=== PATIENT | female | born 1980 | race Caucasian/White ===

== ENCOUNTER 2016-12-30 14:36 | Emergency (ER) | payer SELFPAY ==
--- NOTE | 2016-12-30 16:19 | DIAGNOSTIC IMAGING REPORT ---
PROCEDURE: CT CERVICAL SPINE W/O CONTRAST INDICATION: TRAUMA/INJURY TECHNIQUE: Axial CT images were obtained through the cervical spine. Coronal and sagittal reformations were created. No comparison. COMPARISON: None. FINDINGS: There is straightening of the normal cervical lordosis and the kyphotic apex is at the C5-6 level. There is a focal slight anterior disc space widening at the C7-T1 level. There is subtle anterior vertebral body height loss of T1 and trace anterior superior and inferior endplate irregularity at T1. The cervical vertebral bodies are intact. Craniocervical junction is intact. Cervical disc spacing is otherwise normal. There is no significant prevertebral soft tissue swelling or suspicious mass. No unusual central canal densities are visible. The thyroid gland appears mildly diffusely enlarged and its contour is lobulated. The airway is normal. Lung apices are clear. IMPRESSION: 1. Questionable mild anterior wedge compression of T1 with slight anterior disc space widening at C7-T1. This could indicate an anterior longitudinal ligament injury versus normal variant. Notably, no significant adjacent soft tissue swelling. However, MRI for further evaluation is recommended. 2. Cervical spine is otherwise intact. 3. Mildly enlarged, lobular thyroid gland. Correlate clinically. 4. Findings called to the emergency room. All CT scans at this facility use dose modulation, iterative reconstruction, and/or weight-based dosing when appropriate to reduce radiation dose to as low as reasonably achievable.
--- NOTE | 2016-12-30 16:20 | DIAGNOSTIC IMAGING REPORT ---
PROCEDURE: CT HEAD WITHOUT CONTRAST INDICATION: HEAD INJURY TECHNIQUE: Axial CT images were acquired through the head. Coronal and sagittal reformations were created. COMPARISON: None. FINDINGS: No intracranial hemorrhage or extraaxial fluid collections. Ventricles are normal in size, shape and position. There is no mass, mass effect or midline shift. The vaughn-white matter differentiation is normal. There is no edema. The calvarium is intact. The paranasal sinuses and mastoid air cells are normally aerated. The extracranial soft tissues and orbits are normal. IMPRESSION: 1. No CT evidence of acute intracranial trauma. 2. Findings discussed with Dr. Abel at [address] scans at this facility use dose modulation, iterative reconstruction, and/or weight-based dosing when appropriate to reduce radiation dose to as low as reasonably achievable.
--- NOTE | 2016-12-30 19:36 | DIAGNOSTIC IMAGING REPORT ---
PROCEDURE: MR CERVICAL SPINE W/O CONT INDICATION: TRAUMA/INJURY TECHNIQUE: T1, T2, and STIR sagittal sequences. T2 and GRE axial sequences. COMPARISON: CT scan performed earlier the same day FINDINGS: Alignment and curvature: Slight reversal of the normal cervical lordosis with the kyphotic apex at C5-6. No AP subluxation. Intact craniocervical junction. Vertebral bodies: Vertebral body hemangioma in C6. The T1 vertebral body demonstrates normal marrow signal. Very slight anterior superior endplate downsloping without underlying edema is likely normal morphologic variant. No suspicious osseous edema or fracture plane. Disc spaces: Normally maintained disc spaces and signals. No evidence of focal herniation in the cervical spine. Incidental note made of mild disc bulge at the T5-6 level effacing the anterior CSF without causing cord signal. Spinal canal: Visible posterior fossa structures and spinal cord are normal without suspicious signal. No abnormal central canal masses or fluid collections. Paraspinal soft tissues: Longitudinal ligaments appear normal without edema or adjacent fluid. No suspicious paraspinal soft tissue masses or fluid collections. C2-3: Normal C3-4: Normal C4-5: Normal C5-6: Very small left foraminal broad-based disc bulge. C6-7: Normal C7-T1: Normal. IMPRESSION: 1. No MR evidence of acute cervical spine injury. CT findings of slight anterior wedging of T1 and wide and C7-T1 disc space represents normal variant. 2. No evidence of acute disc herniation or central canal hematoma. 3. Reversal of the normal cervical lordosis likely represents muscle spasm. 4. Findings called to the emergency room.
--- NOTE | 2016-12-30 20:19 | ED CLINICAL REPORT ---
Clinical Report - Physicians/Mid Levels [facility] [address] [place] [place] [address] 12/30/2016 14:41 Patient: FAREED MAGANA Time Seen: 1520. Arrived- By private vehicle. Historian- patient. HISTORY OF PRESENT ILLNESS Chief Complaint: INJURY TO HEAD. Location of injuries- (left occipital and L posterior neck). The injury occurred 2 days ago. Occurred at home. Fell (slipped in shower). The patient complains of moderate pain. The patient sustained a blow to the head and complains of neck pain. No loss of consciousness. (nausea and vomiting > 2 times). REVIEW OF SYSTEMS No numbness, chest pain, weakness, difficulty breathing or bladder dysfunction. No laceration. All systems otherwise negative, except as recorded above. PAST HISTORY See nurses notes. Tetanus immunization status is up-to-date. Medications: Estradiol Oral. Allergies: Aspirin. Azithromycin. Codeine. morphine. Possible Moderate(jittery) Penicillin. Sulfa Antibiotics. SOCIAL HISTORY Never smoker. No alcohol use or drug use. No recent travel. Is a local resident. PHYSICAL EXAM Appearance: Alert. Patient in mild distress. Head: No swelling of head. No Salazar's sign or raccoon eyes. (mild left occipital tenderness. no crepitus, step offs, hematoma, or bo abnormalities.). Eyes: Pupils equal, round and reactive to light. Pupillary exam: Right pupil 3mm, round and reactive to light directly and consensually and with accommodation. Left pupil: 3mm, round and reactive to light directly and consensually and with accommodation. EOM intact. No abnormal funduscopic findings. (normal-appearing retinal vasculature. No papilledema.). ENT: No dental injury. No hemotympanum. Pharynx normal. Neck: Painful ROM in the neck. No vertebral tenderness. (left posterior neck tenderness). CVS: Heart sounds normal. Pulses normal. Respiratory: Breath sounds normal. Chest nontender. Abdomen: Soft and nontender. No organomegaly. Back: No tenderness. ROM normal. Skin: Skin intact. Skin warm and dry. Normal skin color. Normal skin turgor. Extremities: Normal inspection. Pelvis stable. Extremities atraumatic. No lower extremity edema. Neuro: Oriented X 3. Mood/affect normal. Speech normal. No motor deficit. No sensory deficit. LABS, X-RAYS, AND EKG CT C-Spine: (PROCEDURE: CT CERVICAL SPINE W/O CONTRAST INDICATION: TRAUMA/INJURY TECHNIQUE: Axial CT images were obtained through the cervical spine. Coronal and sagittal reformations were created. No comparison. COMPARISON: None. FINDINGS: There is straightening of the normal cervical lordosis and the kyphotic apex is at the C5-6 level. There is a focal slight anterior disc space widening at the C7-T1 level. There is subtle anterior vertebral body height loss of T1 and trace anterior superior and inferior endplate irregularity at T1. The cervical vertebral bodies are intact. Craniocervical junction is intact. Cervical disc spacing is otherwise normal. There is no significant prevertebral soft tissue swelling or suspicious mass. No unusual central canal densities are visible. The thyroid gland appears mildly diffusely enlarged and its contour is lobulated. The airway is normal. Lung apices are clear. IMPRESSION: 1. Questionable mild anterior wedge compression of T1 with slight anterior disc space widening at C7-T1. This could indicate an anterior longitudinal ligament injury versus normal variant. Notably, no significant adjacent soft tissue swelling. However, MRI for further evaluation is recommended. 2. Cervical spine is otherwise intact. 3. Mildly enlarged, lobular thyroid gland. Correlate clinically. 4. Findings called to the emergency room.). CT Head: (PROCEDURE: CT HEAD WITHOUT CONTRAST INDICATION: HEAD INJURY TECHNIQUE: Axial CT images were acquired through the head. Coronal and sagittal reformations were created. COMPARISON: None. FINDINGS: No intracranial hemorrhage or extraaxial fluid collections. Ventricles are normal in size, shape and position. There is no mass, mass effect or midline shift. The vaughn-white matter differentiation is normal. There is no edema. The calvarium is intact. The paranasal sinuses and mastoid air cells are normally aerated. The extracranial soft tissues and orbits are normal. IMPRESSION: 1. No CT evidence of acute intracranial trauma.). The study was independently viewed by me, interpreted by the radiologist and discussed with the radiologist. MRI C-Spine: Note- PROCEDURE: MR CERVICAL SPINE W/O CONT INDICATION: TRAUMA/INJURY TECHNIQUE: T1, T2, and STIR sagittal sequences. T2 and GRE axial sequences. COMPARISON: CT scan performed earlier the same day FINDINGS: Alignment and curvature: Slight reversal of the normal cervical lordosis with the kyphotic apex at C5-6. No AP subluxation. Intact craniocervical junction. Vertebral bodies: Vertebral body hemangioma in C6. The T1 vertebral body demonstrates normal marrow signal. Very slight anterior superior endplate downsloping without underlying edema is likely normal morphologic variant. No suspicious osseous edema or fracture plane. Disc spaces: Normally maintained disc spaces and signals. No evidence of focal herniation in the cervical spine. Incidental note made of mild disc bulge at the T5-6 level effacing the anterior CSF without causing cord signal. Spinal canal: Visible posterior fossa structures and spinal cord are normal without suspicious signal. No abnormal central canal masses or fluid collections. Paraspinal soft tissues: Longitudinal ligaments appear normal without edema or adjacent fluid. No suspicious paraspinal soft tissue masses or fluid collections. C2-3: Normal C3-4: Normal C4-5: Normal C5-6: Very small left foraminal broad-based disc bulge. C6-7: Normal C7-T1: Normal. IMPRESSION: 1. No MR evidence of acute cervical spine injury. CT findings of slight anterior wedging of T1 and wide and C7-T1 disc space represents normal variant. 2. No evidence of acute disc herniation or central canal hematoma. 3. Reversal of the normal cervical lordosis likely represents muscle spasm. The study was independently viewed by me, interpreted by the radiologist and discussed with the radiologist. PROGRESS AND PROCEDURES Course of Care: the patient is a pleasant 36-year-old female presenting for a vaginal head injury after falling in the shower. Patient meets criteria for CT scan of the head. Patient is agreeable to treatment plan after discussing the risks and benefits of CT scan. The patient does not have any focal neurological deficits at this time. At this point in time there is been no known spinal cord injury. Medications for pain at ordered. Patient is resting in bed and in no acute distress. Patient appears nontoxic. Do not feel this is infectious in etiology. patient without reported reaction to morphine. Patient reports the morphine "makes her feel weird." dilaudid ordered instead. Workup was significant for a subtle abnormality on the patient's C-spine. Had discussed with radiology possibilities for the abnormality noted there. Differential includes traumatic injury versus congenital normal variant. Because of the consequences of potentially missed traumatic vertebral injury, MRI has been ordered. I had called over to the radiology department to have the MRI done as soon as possible. The earliest the MRI could be done was within several hours. I did inform the patient of the finding and the area agreeable to waiting here in the emergency department for the MRI could be completed. The patient is reporting significant improvement with her pain. Patient continues to be nontoxic. The patient's workup does not show any acute osseous abnormalities. CT scan and MRI have the Patient continues to be neurovascularly intact. Because MRI does not show any signs of acute traumatic injury, do not feel patient needs be admitted to the hospital require further emergency department workup/evaluation. Pain medication will be provided. Patient is agreeable to treatment plan. Discussed with patient workup, diagnosis, home care, follow-up, and return precautions. All questions have been answered. The patient expressed understanding of these instructions and was agreeable to them. Disposition: Discharged. Condition: good. CLINICAL IMPRESSION 12/30/2016 14:57 BP: 120/68. HR: 75. RR: 16. O2 saturation: 98%. Temp: 98.5 F. Pain level now: 8/10. Blood pressure normal. Oxygen saturation normal. Minor closed head injury. No loss of consciousness. (acute left occipital). Single contusion to the left posterior neck. INSTRUCTIONS Warnings: GENERAL WARNINGS: Return or contact your physician immediately if your condition worsens or changes unexpectedly, if not improving as expected, or if other problems arise. Specifically return if pain, vomiting, bleeding, breathing difficulty or fever. change in vision, weakness, numbness, tingling, or other concerns. Your Current Medications: CONTINUE TAKING THE FOLLOWING MEDICATIONS: Estradiol Oral. Prescription Medications: Motrin 600 mg tablets: take 1 tablet orally every 6 hours as needed for pain, stiffness or swelling. Dispense thirty (30). No refill. Substitution is permissible. (take with food) Percocet 5 mg/325 mg: take 1 tablet orally every 6 hours as needed for pain. Dispense twelve (12). No refill. Substitution is permissible. Follow-up: Return to the emergency department as needed. Follow up with your doctor in three days. Reason for referral: recheck today's concerns. Summary of care provided to patient via paper. Screening today revealed the patient's blood pressure to be in the normal range. The patient should follow up with a primary care provider for blood pressure management. Understanding of the discharge instructions verbalized by patient. Follow-up with: [facility], , , [address], , [place], [id number] Follow up. Reason for referral: contact if you do not have a primary care doctor. Summary of care provided to patient via paper. (Electronically signed by Kvng Abel Dr. 01/06/2017 23:40)
--- NOTE | 2016-12-30 20:19 | ED ORDER SUMMARY ---
..... Patient: FAREED MAGANA OrderSheet [facility] VisitID: [id number] [place] [address] 36y, F Registration Date/Time: 12/30/2016 ORDER SHEET Weight: 66.2 kg (stated) Allergies: Aspirin, Azithromycin, Codeine, Penicillin, Sulfa Antibiotics, morphine GENERAL ORDERS: CBC w Diff Urgent (15:12 12/30/2016 JBoardley R.N. per protocol) (Ack 15:22 LNations ER Tech1) (15:23 LNations ER Tech1) CMP Urgent (15:12 12/30/2016 JBoardley R.N. per protocol) (Ack 15:22 LNations ER Tech1) (15:23 LNations ER Tech1) CT Head wo Cont Urgent (15:38 12/30/2016 Thong Woods) (Ack 15:42 LNations ER Tech1) (15:55 JBoardley R.N.) CT Cervical Spine wo Cont Urgent (15:39 12/30/2016 Thong Woods) (Ack 15:42 LNations ER Tech1) (15:55 JBoardley R.N.) MRI Cervical Spine wo Cont (Not Applicable) Urgent (16:18 12/30/2016 Thong Woods) (Ack 16:20 LNations ER Tech1) (19:07 JBoardley R.N.) MEDICATION ORDERS: IV FLUIDS: Zofran IV 4 mg (NOW) (15:11 12/30/2016 JBoardley R.N. per protocol) (15:13 JBoardley R.N.) IV NS : initial bolus none -, then TKO - for X1 (NOW) (15:12 12/30/2016 JBoardley R.N. per protocol) (15:13 JBoardley R.N.) Morphine IV 4 mg (HIGH ALERT MEDICATION, NOW) (15:39 12/30/2016 Thong Woods) (Ack 15:39 JBoardley R.N.) (Cancelled: [id number] JBoardley R.N.) Dilaudid IV 1 mg (HIGH ALERT MEDICATION, NOW) (15:45 12/30/2016 Thong Woods) (Ack 15:47 JBoardley R.N.) (16:00 JBoardley R.N.) Diazepam IV 2 mg (HIGH ALERT MEDICATION, NOW) (16:46 12/30/2016 Thong Woods) (Ack 16:47 JBoardley R.N.) (16:55 JBoardley R.N.) Dilaudid IV 2 mg (HIGH ALERT MEDICATION, NOW) (17:29 12/30/2016 Thong Woods) (Ack 17:31 JBoardley R.N.) (17:36 JBoardley R.N.) ORDER SHEET NOTES: [Electronically signed by Cheo Adams R.N. (20:49 12/30/2016)] [Electronically signed by Kvng Abel Dr. (23:40 01/06/2017)] [Electronically locked/signed by Choe Adams R.N. (20:49 12/30/2016)]
--- NOTE | 2016-12-30 20:19 | ED ORDER SUMMARY ---
..... Patient: FAREED MAGANA OrderSheet [facility] VisitID: [id number] [place] [address] 36y, F Registration Date/Time: 12/30/2016 ORDER SHEET Weight: 66.2 kg (stated) Allergies: Aspirin, Azithromycin, Codeine, Penicillin, Sulfa Antibiotics, morphine GENERAL ORDERS: CBC w Diff Urgent (15:12 12/30/2016 JBoardley R.N. per protocol) (Ack 15:22 LNations ER Tech1) (15:23 LNations ER Tech1) CMP Urgent (15:12 12/30/2016 JBoardley R.N. per protocol) (Ack 15:22 LNations ER Tech1) (15:23 LNations ER Tech1) CT Head wo Cont Urgent (15:38 12/30/2016 Thong Woods) (Ack 15:42 LNations ER Tech1) (15:55 JBoardley R.N.) CT Cervical Spine wo Cont Urgent (15:39 12/30/2016 Thong Woods) (Ack 15:42 LNations ER Tech1) (15:55 JBoardley R.N.) MRI Cervical Spine wo Cont (Not Applicable) Urgent (16:18 12/30/2016 Thong Woods) (Ack 16:20 LNations ER Tech1) (19:07 JBoardley R.N.) MEDICATION ORDERS: IV FLUIDS: Zofran IV 4 mg (NOW) (15:11 12/30/2016 JBoardley R.N. per protocol) (15:13 JBoardley R.N.) IV NS : initial bolus none -, then TKO - for X1 (NOW) (15:12 12/30/2016 JBoardley R.N. per protocol) (15:13 JBoardley R.N.) Morphine IV 4 mg (HIGH ALERT MEDICATION, NOW) (15:39 12/30/2016 Thong Woods) (Ack 15:39 JBoardley R.N.) (Cancelled: [id number] JBoardley R.N.) Dilaudid IV 1 mg (HIGH ALERT MEDICATION, NOW) (15:45 12/30/2016 Thong Woods) (Ack 15:47 JBoardley R.N.) (16:00 JBoardley R.N.) Diazepam IV 2 mg (HIGH ALERT MEDICATION, NOW) (16:46 12/30/2016 Thong Woods) (Ack 16:47 JBoardley R.N.) (16:55 JBoardley R.N.) Dilaudid IV 2 mg (HIGH ALERT MEDICATION, NOW) (17:29 12/30/2016 Thong Woods) (Ack 17:31 JBoardley R.N.) (17:36 JBoardley R.N.) ORDER SHEET NOTES: [Electronically signed by Cheo Adams R.N. (20:49 12/30/2016)] [Electronically signed by Kvng Abel Dr. (23:40 01/06/2017)] [Electronically locked/signed by Cheo Adams R.N. (20:49 12/30/2016)]
--- NOTE | 2016-12-30 20:19 | ED NURSING NOTES ---
Clinical Report - Nurses [facility] [address] [place] [address] 12/30/2016 14:41 Patient: FAREED MAGANA TRIAGE Triage time 14:53. Acuity: LEVEL 3. Chief Complaint: FALL. 14:53 12/30/16. 14:54 12/30/16. Alert. ( Pt fell in the shower Friday. Since pt has "been sleepy". This occurred while pt was shaving her legs). SEPSIS SCREEN: Sepsis Screen. Negative (no infection suspected/documented). DEEDEE COMA SCORE: Deedee Coma Scale: 15- eyes open spontaneously (4); best verbal response- oriented x 4 (5); best motor response- obeys commands (6). --15:01 Marquis Delgado R.N. 14:57 12/30/16. BP: 120/68. HR: 75. RR: 16. O2 saturation: 98% on room air. Temp: 98.5 F (oral). Pain level now: 06/19. --15:01 Marquis Delgado R.N. Weight: 66.2 kg stated. Height/Length: 61 inches Per Patient. BMI: 27.6. --14:53 Marquis Delgado R.N. Medications Estradiol Oral. --14:56 Marquis Delgado R.N. Medication/allergy information source: the patient. --15:01 Marquis Delgado R.N. Allergies Aspirin. Azithromycin. Codeine. Penicillin. Sulfa Antibiotics. --14:56 Marquis Delgado R.N. morphine. Possible Moderate(jittery) --15:42 Marquis Delgado R.N. History Arrived by private vehicle. Historian: patient. Unaccompanied. Primary physician (NONE). 14:54 12/30/16. Occurred at home. ( Friday). The patient had loss of consciousness. She has had a headache and neck pain. Treatment SUBSCRIPTION AGENT: Ice and (Oxycodone-APAP). PAST MEDICAL HX: Tetanus status: unknown. Immunizations: status is unknown. The patient has had a hysterectomy. SOCIAL HX: Current every day light tobacco smoker (cigarette)- less than 1/2 a pack per day. No alcohol use or drug use. No infectious disease exposure. ABUSE ASSESSMENT: No report of abuse. FALL RISK ASSESSMENT: Fall risk assessment completed. No fall risk identified. NUTRITIONAL RISK ASSESSMENT: The nutritional risk assessment revealed no deficiencies. FUNCTIONAL ASSESSMENT: Functional assessment: no impairments noted. LEARNING NEEDS ASSESSMENT: The learning needs assessment revealed no barriers. SKIN INTEGRITY ASSESSMENT: Skin integrity risk assessment completed. No skin integrity risk identified. --15:01 Marquis Delgado R.N. ( c/o N/V). --15:02 Marquis Delgado R.N. PROBLEMS: Vomiting. UTI - Urinary Tract Infection. Back Injury. Back Pain. Lumbar Strain. --14:56 Marquis Delgado R.N. ADDITIONAL SURGERIES: Hysterectomy. Previous Abdominal Surgery. --14:56 Marquis Delgado R.N. Assessment 14:54 12/30/16. --15:01 Marquis Delgado R.N. Interventions 14:53 12/30/16. 14:54 12/30/16. ID and allergy band on patient. To treatment room. --15:01 Marquis Delgado R.N. PHYSICAL ASSESSMENT 14:57 12/30/16. Ambulatory to room. GENERAL / NEURO / PSYCH: Alert. Oriented X 4. Appears in pain. HEENT: Neck: tenderness. RESPIRATORY: Respirations not labored. CVS: Capillary refill less than 2 seconds. EXTREMITIES: Neuro-vascular status intact to the extremity. SKIN: Skin is warm and dry. --14:57 Marquis Delgado R.N. NURSING PROGRESS NOTES 14:57 12/30/16. Patient gowned. Reassurance given. Two patient identifiers checked. Call light placed in reach. Side rails up x 2. Bed placed in lowest position. Brakes of bed on. Brakes of chair on. --14:57 Marquis Delgado R.N. 14:57 12/30/16. Patient ready for evaluation- chart flagged and notification provided. --14:57 Marquis Delgado R.N. 15:12 12/30/2016 Site #1 started via IV in the right antecubital space with an 20g angiocath, with aseptic technique and good blood return; one attempt. Blood drawn: rainbow set. Labeled in the presence of the patient and sent to the lab. Saline lock flushed with 10 mL saline. --15:12 Marquis Delgado R.N. 15:12 12/30/2016 Started bag #1 1000 mL IV Fluids IV NS (Saline); at 21 mL/hr over 4 hour(s) via site #1. Allergies verified and confirmed 5 rights. Completed per protocol. --15:13 Marquis Delgado R.N. 15:13 12/30/2016 Zofran (Ondansetron HCl) IVP 4 mg given over 2 minute(s) via site #1. Allergies verified and confirmed 5 rights. IV patency established. IV site checked: no pain, redness, or swelling. IV flushed thoroughly pre- and post-medication administration. IVP given by RN. --15:13 Marquis Delgado R.N. 15:13 12/30/16. Pulse oximeter applied. NIBP monitor applied. --15:13 Marquis Delgado R.N. 15:13 12/30/16. HR: 67. RR: 14. O2 saturation: 100% on room air. Pain level now: 06/19. --15:14 Marquis Delgado R.N. 15:14 12/30/16. --15:14 Marquis Delgado R.N. 15:18 12/30/16. ( aware of pts status, Nausea). --15:18 Marquis Delgado R.N. 15:18 12/30/16. ED physician notified about patient's status. --15:18 Marquis Delgado R.N. 15:32 12/30/16. ( at bedside, pt moved to room 5 to free up trauma room 1). --15:32 Marquis Delgado R.N. 15:37 12/30/16. --15:37 Marquis Delgado R.N. 15:36 12/30/16. BP: 126/66. HR: 65. RR: 16. O2 saturation: 99% on room air. --15:37 Marquis Delgado R.N. 15:37 12/30/16. Patient waiting for CT to be done. --15:37 Marquis Delgado R.N. 15:38 12/30/16. Reassessment after medication administered. Overall patient status is improved- she states feels better. GI / : Denies nausea. --15:38 Marquis Delgado R.N. 16:00 12/30/2016 Dilaudid (HYDROmorphone HCl PF) IVP 1 mg given over 4 minute(s) via site #1. Allergies verified, confirmed 5 rights and sedative warning given to the patient. IV patency established. IV site checked: no pain, redness, or swelling. IV flushed thoroughly pre- and post-medication administration. IVP given by RN. --16:00 Marquis Delgado R.N. 16:01 12/30/16. BP: 121/75. HR: 63. RR: 14. O2 saturation: 98% on room air. --16:01 Marquis Delgado R.N. 16:01 12/30/16. --16:01 Marquis Delgado R.N. 16:02 12/30/16. Patient informed about reason for wait and about plan of care. --16:02 Marquis Delgado R.N. 16:02 12/30/16. Patient waiting for CT results. --16:02 Marquis Delgado R.N. ( MRI paperwork given to pt.). --16:26 Leona Metz ER [facility] 16:55 12/30/2016 Diazepam (Diazepam) IVP 2 mg given over 2 minute(s) via site #1. Allergies verified, confirmed 5 rights and sedative warning given to the patient. IV patency established. IV site checked: no pain, redness, or swelling. IV flushed thoroughly pre- and post-medication administration. IVP given by RN. --16:55 Marquis Delgado R.N. 16:55 12/30/16. BP: 115/65. HR: 73. RR: 18. O2 saturation: 100% on room air. --16:56 Marquis Delgado R.N. 16:56 12/30/16. --16:56 Marquis Delgado R.N. 16:56 12/30/16. Patient waiting for MRI to be done (at 1800). --16:56 Marquis Delgado R.N. 17:36 12/30/2016 Dilaudid (HYDROmorphone HCl PF) IVP 2 mg given over 4 minute(s) via site #1. Allergies verified, confirmed 5 rights and sedative warning given to the patient. IV patency established. IV site checked: no pain, redness, or swelling. IV flushed thoroughly pre- and post-medication administration. IVP given by RN. --17:36 Marquis Delgado R.N. 17:40 12/30/16. --17:40 Marquis Delgado R.N. 17:39 12/30/16. BP: 116/75. HR: 70. RR: 14. O2 saturation: 100% on room air. --17:40 Marquis Delgado R.N. Patient transported to [facility] by wheelchair. (18:20 Dec 30 2016). --18:26 Brielle Melchor R.N. 19:04 12/30/16. Care transferred and report given. --19:04 Marquis Delgado R.N. 19:07 12/30/16. Patient returned from [facility] by stretcher with tech. --19:07 Marquis Delgado R.N. 19:17 12/30/16. Patient and family informed about reason for wait and about plan of care. --19:17 Marquis Delgado R.N. 19:17 12/30/16. Patient waiting for MRI to be done and result. --19:17 Marquis Delgado R.N. 19:17 12/30/16. --19:17 Marquis Delgado R.N. 19:12/30/16. BP: 100/50. HR: 52. RR: 12. O2 saturation: 100% on room air. --19:17 Marquis Delgado R.N. 19:17 12/30/16. Monitoring of patient in place. Pulse oximeter applied. NIBP monitor applied. --19:17 Marquis Delgado R.N. DISPOSITION / DISCHARGE Condition at departure: improved. The goals identified in the patient's plan of care were met. Reviewed medication(s) side effects, precautions, dosing and course information. Prescription(s) given to the patient. Patient verbalized understanding. Written instructions provided in Greek. The patient was discharged home and accompanied by spouse. She left the Emergency Department ambulatory and via private vehicle. Spouse driving. FALL RISK ASSESSMENT: Fall risk assessment completed. No fall risk identified. --20:49 Cheo Adams R.N. 20:46 12/30/16. BP: 122/72. HR: 77. RR: 16. O2 saturation: 98%. Temp: 98.2 F. Pain level now: 04/19. --20:49 Cheo Adams R.N. Departure time: 2048 PM. --20:49 Cheo Adams R.N. 20:49 12/30/2016 Site #1 removed upon discharge. Catheter intact. --20:49 Cheo Adams R.N. 20:49 12/30/2016 IV Fluids IV NS Discontinued: bag #1 infused upon discharge. IV patency established. IV site checked: no pain, redness, or swelling. IV flushed thoroughly. --20:49 Cheo Adams R.N. Locked/Released at 12/30/2016 20:49 by Cheo Adams R.N.
--- NOTE | 2017-01-06 23:40 | ED DISCHARGE INSTRUCTIONS ---
Patient: FAREED MAGANA General Instructions [facility] VisitID: [id number] [address] [place] [address] 36y, F Registration Date/Time: 12/30/2016 12/30/2016 14:57 BP: 120/68. HR: 75. RR: 16. O2 saturation: 98%. Temp: 98.5 F. Pain level now: 8/10. Blood pressure normal. Oxygen saturation normal. Minor closed head injury. No loss of consciousness. (acute left occipital). Single contusion to the left posterior neck. INSTRUCTIONS Warnings: GENERAL WARNINGS: Return or contact your physician immediately if your condition worsens or changes unexpectedly, if not improving as expected, or if other problems arise. Specifically return if pain, vomiting, bleeding, breathing difficulty or fever. change in vision, weakness, numbness, tingling, or other concerns. Your Current Medications: CONTINUE TAKING THE FOLLOWING MEDICATIONS: Estradiol Oral. Prescription Medications: Motrin 600 mg tablets: take 1 tablet orally every 6 hours as needed for pain, stiffness or swelling. Dispense thirty (30). No refill. Substitution is permissible. (take with food) Percocet 5 mg/325 mg: take 1 tablet orally every 6 hours as needed for pain. Dispense twelve (12). No refill. Substitution is permissible. Follow-up: Return to the emergency department as needed. Follow up with your doctor in three days. Reason for referral: recheck today's concerns. Summary of care provided to patient via paper. Screening today revealed the patient's blood pressure to be in the normal range. The patient should follow up with a primary care provider for blood pressure management. Understanding of the discharge instructions verbalized by patient. Follow-up with: [facility], , , [address], [place], [address] Follow up. Reason for referral: contact if you do not have a primary care doctor. Summary of care provided to patient via paper. ADDITIONAL INFORMATION Concussion (No Wake-Up) A concussion happens when you hit your head with enough force to shake up the brain. This may cause you to lose consciousness be "knocked out" - but not always. Depending on how hard you hit your head, it will take from a few hours up to a few days to get better. Sometimes symptoms may last a few months or longer. This is called post-concussion syndrome. At first, you may have a headache, nausea, vomiting, or dizziness. You may also have problems concentrating or remembering things. This is normal. Symptoms should get better as the hours and days go by. Symptoms that get worse could be a sign of a more serious injury. This might be a bruise or bleeding in the brain. Thats why its important to watch for the warning signs listed below. Home care Follow these tips to help care for yourself at home: During the next day (24 hours) someone must stay with you to check for the signs below. If your face or scalp swells, apply an ice pack for 20 minutes every 1 to 2 hours. Do this until the swelling starts to go down. You can make an ice pack by putting ice cubes in a plastic bag and wrapping the bag in a towel. for 20 minutes every 1-2 hours until the swelling starts to go down. You may use acetaminophen to control pain, unless another pain medicine was prescribed. If you have chronic liver or kidney disease, talk with your doctor before using these medicines. Also talk with your doctor if you ever had a stomach ulcer or GI bleeding. For the next 24 hours: Dont drink alcohol or take sedatives or medicines that make you sleepy. Dont drive or operate machinery. Avoid doing anything strenuous. Dont lift or strain. Dont return to sports or any activity that could cause you to hit your head until all symptoms are gone and you have been cleared by your doctor. A second head injury before fully recovering from the first one can lead to serious brain injury. Follow-up care Follow up with your doctor in 1 week, or as directed. Note: A radiologist will review any X-rays or CT scans that were taken. You will be told of any new findings that may affect your care. When to seek medical care Get prompt medical attention if any of these occur: Repeated vomiting Headache or dizziness that is severe or gets worse Unusual drowsiness, or unable to wake up as usual Confusion or change in behavior or speech, or memory loss Blurred vision Convulsion (seizure) Swelling on the scalp or face that gets worse Redness, warmth, or pus from the swollen area Fluid draining from or bleeding from the nose or ears Contusion,Soft Tissue You have a CONTUSION, which is a bruise with swelling and some bleeding under the skin. There are no broken bones. This injury takes a few days to a few weeks to heal. Home Care: 1) Keep the injured part elevated to reduce pain and swelling. This is especially important during the first 48 hours. 2) Make an ice pack (ice cubes in a plastic bag, wrapped in a towel) and apply for 20 minutes every 1-2 hours the first day. Continue this 3-4 times a day until the pain and swelling goes away. 3) You may use acetaminophen (Tylenol) or ibuprofen (Motrin, Advil) to control pain, unless another pain medicine was prescribed. [ NOTE : If you have chronic liver or kidney disease or ever had a stomach ulcer or GI bleeding, talk with your doctor before using these medicines.] Follow Up with your doctor or this facility if you are not improving within the next THREE days. [NOTE: If X-rays were taken, they will be reviewed by a radiologist. You will be notified of any new findings that may affect your care.] Get Prompt Medical Attention if any of the following occur: -- Pain or swelling increases -- Injured arm or leg becomes cold, blue, numb or tingly -- Redness, warmth or drainage from the skin Ibuprofen Oral tablet What is this medicine? IBUPROFEN (eye BYOO proe fen) is a non-steroidal anti-inflammatory drug (NSAID). It is used for dental pain, fever, headaches or migraines, osteoarthritis, rheumatoid arthritis, or painful monthly periods. It can also relieve minor aches and pains caused by a cold, flu, or sore throat. How should I use this medicine? Take this medicine by mouth with a glass of water. Follow the directions on the prescription label. Take this medicine with food if your stomach gets upset. Try to not lie down for at least 10 minutes after you take the medicine. Take your medicine at regular intervals. Do not take your medicine more often than directed. A special MedGuide will be given to you by the pharmacist with each prescription and refill. Be sure to read this information carefully each time. Talk to your boring inspector regarding the use of this medicine in children. Special care may be needed. What side effects may I notice from receiving this medicine? Side effects that you should report to your doctor or health account executive healthcare as soon as possible: allergic reactions like skin rash, itching or hives, swelling of the face, lips, or tongue black or bloody stools, blood in the urine or in vomit breathing problems changes in vision chest pain general ill feeling or flu-like symptoms nausea or vomiting redness, blistering, peeling or loosening of the skin, including inside the mouth slurred speech or weakness on one side of the body stomach pain unexplained weight gain or swelling unusually weak or tired yellowing of eyes or skin Side effects that usually do not require medical attention (report to your doctor or health account executive healthcare if they continue or are bothersome): constipation or diarrhea dizziness gas or heartburn stomach upset What may interact with this medicine? Do not take this medicine with any of the following medications: cidofovir ketorolac methotrexate pemetrexed This medicine may also interact with the following medications: alcohol aspirin diuretics lithium other drugs for inflammation like prednisone warfarin What if I miss a dose? If you miss a dose, take it as soon as you can. If it is almost time for your next dose, take only that dose. Do not take double or extra doses. Where should I keep my medicine? Keep out of the reach of children. Store at room temperature between 15 and 30 degrees C (59 and 86 degrees F). Keep container tightly closed. Throw away any unused medicine after the expiration date. What should I tell my health care provider before I take this medicine? They need to know if you have any of these conditions: asthma cigarette smoker drink more than 3 alcohol containing drinks a day heart disease or circulation problems such as heart failure or leg edema (fluid retention) high blood pressure kidney disease liver disease stomach bleeding or ulcers an unusual or allergic reaction to ibuprofen, aspirin, other NSAIDS, other medicines, foods, dyes, or preservatives or trying to get breast-feeding What should I watch for while using this medicine? Tell your doctor or healthcare professional if your symptoms do not start to get better or if they get worse. This medicine does not prevent heart attack or stroke. In fact, this medicine may increase the chance of a heart attack or stroke. The chance may increase with longer use of this medicine and in people who have heart disease. If you take aspirin to prevent heart attack or stroke, talk with your doctor or health account executive healthcare. Do not take other medicines that contain aspirin, ibuprofen, or naproxen with this medicine. Side effects such as stomach upset, nausea, or ulcers may be more likely to occur. Many medicines available without a prescription should not be taken with this medicine. This medicine can cause ulcers and bleeding in the stomach and intestines at any time during treatment. Ulcers and bleeding can happen without warning symptoms and can cause . To reduce your risk, do not smoke cigarettes or drink alcohol while you are taking this medicine. You may get drowsy or dizzy. Do not drive, use machinery, or do anything that needs mental alertness until you know how this medicine affects you. Do not stand or sit up quickly, especially if you are an older patient. This reduces the risk of dizzy or fainting spells. This medicine can cause you to bleed more easily. Try to avoid damage to your teeth and gums when you brush or floss your teeth. Oxycodone Hydrochloride, Acetaminophen Oral tablet What is this medicine? ACETAMINOPHEN; OXYCODONE (a set a ASHOK zhou fen; ox i KOE done) is a pain reliever. It is used to treat mild to moderate pain. How should I use this medicine? Take this medicine by mouth with a full glass of water. Follow the directions on the prescription label. Take your medicine at regular intervals. Do not take your medicine more often than directed. Talk to your boring inspector regarding the use of this medicine in children. Special care may be needed. Patients over 65 years old may have a stronger reaction and need a smaller dose. What side effects may I notice from receiving this medicine? Side effects that you should report to your doctor or health account executive healthcare as soon as possible: allergic reactions like skin rash, itching or hives, swelling of the face, lips, or tongue breathing difficulties, wheezing confusion light headedness or fainting spells severe stomach pain yellowing of the skin or the whites of the eyes Side effects that usually do not require medical attention (report to your doctor or health account executive healthcare if they continue or are bothersome): dizziness drowsiness nausea vomiting What may interact with this medicine? alcohol antihistamines barbiturates like amobarbital, butalbital, butabarbital, methohexital, pentobarbital, phenobarbital, thiopental, and secobarbital benztropine drugs for bladder problems like solifenacin, trospium, oxybutynin, tolterodine, hyoscyamine, and methscopolamine drugs for breathing problems like ipratropium and tiotropium drugs for certain stomach or intestine problems like propantheline, homatropine methylbromide, glycopyrrolate, atropine, belladonna, and dicyclomine general anesthetics like etomidate, ketamine, nitrous oxide, propofol, desflurane, enflurane, halothane, isoflurane, and sevoflurane medicines for depression, anxiety, or psychotic disturbances medicines for sleep muscle relaxants naltrexone narcotic medicines (opiates) for pain phenothiazines like perphenazine, thioridazine, chlorpromazine, mesoridazine, fluphenazine, prochlorperazine, promazine, and trifluoperazine scopolamine tramadol trihexyphenidyl What if I miss a dose? If you miss a dose, take it as soon as you can. If it is almost time for your next dose, take only that dose. Do not take double or extra doses. Where should I keep my medicine? Keep out of the reach of children. This medicine can be abused. Keep your medicine in a safe place to protect it from theft. Do not share this medicine with anyone. Selling or giving away this medicine is dangerous and against the law. Store at room temperature between 20 and 25 degrees C (68 and 77 degrees F). Keep container tightly closed. Protect from light. This medicine may cause accidental overdose and if it is taken by other adults, children, or pets. Flush any unused medicine down the toilet to reduce the chance of harm. Do not use the medicine after the expiration date. What should I tell my health care provider before I take this medicine? They need to know if you have any of these conditions: brain tumor Crohn's disease, inflammatory bowel disease, or ulcerative colitis drink more than 3 alcohol containing drinks per day drug abuse or addiction head injury heart or circulation problems kidney disease or problems going to the bathroom liver disease lung disease, asthma, or breathing problems an unusual or allergic reaction to acetaminophen, oxycodone, other opioid analgesics, other medicines, foods, dyes, or preservatives or trying to get breast-feeding What should I watch for while using this medicine? Tell your doctor or health account executive healthcare if your pain does not go away, if it gets worse, or if you have new or a different type of pain. You may develop tolerance to the medicine. Tolerance means that you will need a higher dose of the medication for pain relief. Tolerance is normal and is expected if you take this medicine for a long time. Do not suddenly stop taking your medicine because you may develop a severe reaction. Your body becomes used to the medicine. This does NOT mean you are addicted. Addiction is a behavior related to getting and using a drug for a non-medical reason. If you have pain, you have a medical reason to take pain medicine. Your doctor will tell you how much medicine to take. If your doctor wants you to stop the medicine, the dose will be slowly lowered over time to avoid any side effects. You may get drowsy or dizzy. Do not drive, use machinery, or do anything that needs mental alertness until you know how this medicine affects you. Do not stand or sit up quickly, especially if you are an older patient. This reduces the risk of dizzy or fainting spells. Alcohol may interfere with the effect of this medicine. Avoid alcoholic drinks. There are different types of narcotic medicines (opiates) for pain. If you take more than one type at the same time, you may have more side effects. Give your health care provider a list of all medicines you use. Your doctor will tell you how much medicine to take. Do not take more medicine than directed. Call emergency for help if you have problems breathing. The medicine will cause constipation. Try to have a bowel movement at least every 2 to 3 days. If you do not have a bowel movement for 3 days, call your doctor or health account executive healthcare. Do not take Tylenol (acetaminophen) or medicines that have acetaminophen with this medicine. Too much acetaminophen can be very dangerous. Many nonprescription medicines contain acetaminophen. Always read the labels carefully to avoid taking more acetaminophen. You have been given the following additional information: Concussion, No Wake-Up Contusion, Soft Tissue Ibuprofen Oral tablet Oxycodone Hydrochloride, Acetaminophen Oral tablet (Electronically signed by Kvng Abel Dr. 01/06/2017 23:40)
--- NOTE | 2017-01-06 23:40 | ED MAR SUMMARY ---
..... Medication Administration Record [facility] [address] [place] [address] Patient: FAREED MAGANA Visit ID: [id number] 36y, F Weight: 66.2 kg Height/Length: 61 in BMI: 27.6 ALLERGIES: Aspirin, Azithromycin, Codeine, Penicillin, Sulfa Antibiotics, morphine Start 15:12 12/30/2016 Marqius Delgado R.N., Stop 20:49 12/30/2016 Cheo Adams R.N. Medication Administered: IV NS (SALINE), Dose: IV Fluids over 4 hour(s), Rate: 21 mL/hr, Dispensed: 1000 mL bag, Site: #1 right AC. Medication Ordered: IV NS : initial bolus none -, then TKO - for X1 (NOW). Given 15:13 12/30/2016 Marquis Delgado R.N. Medication Administered: ZOFRAN [IVP] (ONDANSETRON HCL), Dose: 4 mg IVP over 2 minute(s), Site: #1 right AC. Medication Ordered: Zofran IV 4 mg (NOW). Given 16:00 12/30/2016 Marquis Delgado R.N. Medication Administered: DILAUDID [IVP] (HYDROMORPHONE HCL PF), Dose: 1 mg IVP over 4 minute(s), Site: #1 right AC. Medication Ordered: Dilaudid IV 1 mg (HIGH ALERT MEDICATION, NOW). Given 16:55 12/30/2016 Marquis Delgado R.N. Medication Administered: DIAZEPAM [IVP] (DIAZEPAM), Dose: 2 mg IVP over 2 minute(s), Site: #1 right AC. Medication Ordered: Diazepam IV 2 mg (HIGH ALERT MEDICATION, NOW). Given 17:36 12/30/2016 Marquis Delgado R.N. Medication Administered: DILAUDID [IVP] (HYDROMORPHONE HCL PF), Dose: 2 mg IVP over 4 minute(s), Site: #1 right AC. Medication Ordered: Dilaudid IV 2 mg (HIGH ALERT MEDICATION, NOW).
--- NOTE | 2017-01-06 23:40 | ED MAR SUMMARY ---
..... Medication Administration Record [facility] [address] [place] [address] Patient: FAREED MAGANA Visit ID: [id number] 36y, F Weight: 66.2 kg Height/Length: 61 in BMI: 27.6 ALLERGIES: Aspirin, Azithromycin, Codeine, Penicillin, Sulfa Antibiotics, morphine Start 15:12 12/30/2016 Marquis Delgado R.N., Stop 20:49 12/30/2016 Cheo Adams R.N. Medication Administered: IV NS (SALINE), Dose: IV Fluids over 4 hour(s), Rate: 21 mL/hr, Dispensed: 1000 mL bag, Site: #1 right AC. Medication Ordered: IV NS : initial bolus none -, then TKO - for X1 (NOW). Given 15:13 12/30/2016 Marquis Delgado R.N. Medication Administered: ZOFRAN [IVP] (ONDANSETRON HCL), Dose: 4 mg IVP over 2 minute(s), Site: #1 right AC. Medication Ordered: Zofran IV 4 mg (NOW). Given 16:00 12/30/2016 Marquis Delgado R.N. Medication Administered: DILAUDID [IVP] (HYDROMORPHONE HCL PF), Dose: 1 mg IVP over 4 minute(s), Site: #1 right AC. Medication Ordered: Dilaudid IV 1 mg (HIGH ALERT MEDICATION, NOW). Given 16:55 12/30/2016 Marquis Delgado R.N. Medication Administered: DIAZEPAM [IVP] (DIAZEPAM), Dose: 2 mg IVP over 2 minute(s), Site: #1 right AC. Medication Ordered: Diazepam IV 2 mg (HIGH ALERT MEDICATION, NOW). Given 17:36 12/30/2016 Marquis Delgado R.N. Medication Administered: DILAUDID [IVP] (HYDROMORPHONE HCL PF), Dose: 2 mg IVP over 4 minute(s), Site: #1 right AC. Medication Ordered: Dilaudid IV 2 mg (HIGH ALERT MEDICATION, NOW).
--- NOTE | 2017-01-06 23:40 | ED MED RECONCILIATION SUMMARY ---
Patient: FAREED MAGANA Medication Reconciliation Report [facility] VisitID: [id number] [address] [place] [address] 36y, F Registration Date/Time: 12/30/2016 Weight: 66.2 kg Height/Length: 61 in. BMI: 27.6 ALLERGIES: Aspirin, Azithromycin, Codeine, morphine, Penicillin, Sulfa Antibiotics The patient's Home Medications are listed below: CONTINUE TAKING THE FOLLOWING MEDICATIONS: Estradiol Oral The source(s) of the original Home Medication information: patient The following Medications were given to the patient in the Emergency Department: IV NS IV Fluids bolus 0, then 21 mL/hr, administered: 12/30/2016 3:12:00 PM Zofran [IVP] IVP 4 mg, administered: 12/30/2016 3:13:00 PM Dilaudid [IVP] IVP 1 mg, administered: 12/30/2016 4:00:00 PM Diazepam [IVP] IVP 2 mg, administered: 12/30/2016 4:55:00 PM Dilaudid [IVP] IVP 2 mg, administered: 12/30/2016 5:36:00 PM The following Medications were prescribed to the patient: Motrin 600 mg tablets: take 1 tablet orally every 6 hours as needed for pain, stiffness or swelling. Dispense thirty (30). No refill. Substitution is permissible.(take with food) -- Kvng Abel Dr. Percocet 5 mg/325 mg: take 1 tablet orally every 6 hours as needed for pain. Dispense twelve (12). No refill. Substitution is permissible. -- Kvng Abel Dr.
--- NOTE | 2017-01-06 23:40 | ED MED RECONCILIATION SUMMARY ---
Patient: FAREED MAGANA Medication Reconciliation Report [facility] VisitID: [id number] [address] [place] [address] 36y, F Registration Date/Time: 12/30/2016 Weight: 66.2 kg Height/Length: 61 in. BMI: 27.6 ALLERGIES: Aspirin, Azithromycin, Codeine, morphine, Penicillin, Sulfa Antibiotics The patient's Home Medications are listed below: CONTINUE TAKING THE FOLLOWING MEDICATIONS: Estradiol Oral The source(s) of the original Home Medication information: patient The following Medications were given to the patient in the Emergency Department: IV NS IV Fluids bolus 0, then 21 mL/hr, administered: 12/30/2016 3:12:00 PM Zofran [IVP] IVP 4 mg, administered: 12/30/2016 3:13:00 PM Dilaudid [IVP] IVP 1 mg, administered: 12/30/2016 4:00:00 PM Diazepam [IVP] IVP 2 mg, administered: 12/30/2016 4:55:00 PM Dilaudid [IVP] IVP 2 mg, administered: 12/30/2016 5:36:00 PM The following Medications were prescribed to the patient: Motrin 600 mg tablets: take 1 tablet orally every 6 hours as needed for pain, stiffness or swelling. Dispense thirty (30). No refill. Substitution is permissible.(take with food) -- Kvng Abel Dr. Percocet 5 mg/325 mg: take 1 tablet orally every 6 hours as needed for pain. Dispense twelve (12). No refill. Substitution is permissible. -- Kvng Abel Dr.
== END 2016-12-30 20:50 | disposition home or self-care (01) ==
LOC: ED SRH 14:36
DX: S10.83XA Contusion of other specified part of neck, initial encounter (principal); S09.90XA Unspecified injury of head, initial encounter; W18.2XXA Fall in (into) shower or empty bathtub, initial encounter; Y92.002 Bathroom of unspecified non-institutional (private) residence as the place of occurrence of the external cause; Y93.E1 Activity, personal bathing and showering; Y99.9 Unspecified external cause status; Z88.2 Allergy status to sulfonamides; Z88.5 Allergy status to narcotic agent; Z88.6 Allergy status to analgesic agent; Z88.0 Allergy status to penicillin
CPT/HCPCS: 90100; 95059

== ENCOUNTER 2017-02-17 17:50 | Emergency (ER) | payer OTHER ==
--- NOTE | 2017-02-17 18:50 | DIAGNOSTIC IMAGING REPORT ---
PROCEDURE: XR HAND 3 OR 4 VIEWS - LEFT INDICATION: TRAUMA/INJURY TECHNIQUE: Five views of the left hand. COMPARISON: None. FINDINGS: Normal mineralization. No fractures. Normal osseous alignment. No suspicious soft-tissue calcification or radiodense foreign bodies. IMPRESSION: 1. Intact left hand.
--- NOTE | 2017-02-17 19:42 | ED NURSING NOTES ---
Clinical Report - Nurses [facility] [address] [place] [address] 02/17/2017 17:53 Patient: FAREED MAGANA TRIAGE Triage time 18:05. Acuity: LEVEL 4. Chief Complaint: INJURY TO LEFT HAND. 18:05 02/17/17. 18:06 02/17/17. Alert. No acute distress. SEPSIS SCREEN: Sepsis Screen. Negative (no infection suspected/documented). BHARATHI COMA SCORE: [place] Coma Scale: 15- eyes open spontaneously (4); best verbal response- oriented x 4 (5); best motor response- obeys commands (6). --18:11 Marquis Delgado R.N. 18:05 02/17/17. BP: 116/68. HR: 87. RR: 14. O2 saturation: 100% on room air. Temp: 98.1 F (oral). Pain level now: 06/19. --18:11 Marquis Delgado R.N. Weight: 63.5 kg stated. Height/Length: 61 inches Per Patient. BMI: 26.5. --18:06 Marquis Delgado R.N. Medications Estradiol Oral. --18:07 Marquis Delgado R.N. Medication/allergy information source: the patient and patient's family. --18:11 Marquis Delgado R.N. Allergies Aspirin. Azithromycin. Codeine. morphine. Possible Moderate(jittery) Penicillin. Sulfa Antibiotics. --18:07 Marquis Delgado R.N. History Arrived by private vehicle. Historian: patient. Accompanied by family. Primary physician (NONE). 18:06 02/17/17. This occurred just prior to arrival. Occurred at home. Mechanism of injury: fell. Treatment ADMISSION LIAISON: Took ibuprofen. PAST MEDICAL HX: Tetanus status: up-to-date. Immunizations: up-to-date. SOCIAL HX: Current every day light tobacco smoker (cigarette)- less than 1/2 a pack per day. Occasional alcohol use. No drug use. No infectious disease exposure. ABUSE ASSESSMENT: No report of abuse. FALL RISK ASSESSMENT: Fall risk assessment completed. No fall risk identified. NUTRITIONAL RISK ASSESSMENT: The nutritional risk assessment revealed no deficiencies. FUNCTIONAL ASSESSMENT: Functional assessment: no impairments noted. LEARNING NEEDS ASSESSMENT: The learning needs assessment revealed no barriers. SKIN INTEGRITY ASSESSMENT: Skin integrity risk assessment completed. No skin integrity risk identified. --18:11 Marquis Delgado R.N. PROBLEMS: Contusion. Head Injury. Vomiting. UTI - Urinary Tract Infection. Back Injury. Back Pain. Lumbar Strain. --18:07 Marquis Delgado R.N. ADDITIONAL SURGERIES: Hysterectomy. Previous Abdominal Surgery. --18:08 Marquis Delgado R.N. Assessment 18:06 02/17/17. --18:11 Marquis Delgado R.N. Interventions 18:05 02/17/17. 18:06 02/17/17. ID and allergy band on patient. To treatment room. --18:11 Marquis Delgado R.N. PHYSICAL ASSESSMENT 18:02/17/17. Ambulatory to room. GENERAL / NEURO / PSYCH: Oriented X 4. Alert. Appears in no acute distress. EXTREMITIES: Capillary refill is less than 2 seconds in the extremities. Left hand: tenderness and swelling. SKIN: Skin is warm and dry. --18:08 Marquis Delgado R.N. NURSING PROGRESS NOTES 18:02/17/17. The plan of care for this patient has been created. Cold pack applied. Extremity elevated. Reassurance given. Two patient identifiers checked. Call light placed in reach. Side rails up x 2. Bed placed in lowest position. Brakes of bed on. --18:08 Marquis Delgado R.N. 18:30 02/17/17. ( Elevated left hand, gave pt warm blankets). --18:30 Marquis Delgado R.N. 18:50 02/17/2017 Percocet (Oxycodone-Acetaminophen) PO 5/325 mg Tablets 1 tab given. Allergies verified, confirmed 5 rights and sedative warning given to the patient. --18:50 Marquis Delgado R.N. 18:51 02/17/2017 Zofran ODT (Ondansetron) PO 4 mg given. Allergies verified and confirmed 5 rights. --18:51 Marquis Delgado R.N. 19:15 02/17/17. Care transferred and report given. --19:15 Marquis Delgado R.N. 19:19 02/17/17. ( Tech splinting arm then pt to be DC'd). --19:19 Marquis Delgado R.N. Short arm sugar tong fiberglass upper extremity splint applied to right arm by tech. Distal pulses intact, sensation intact and motor within normal limits. --19:36 Nora Wayne ( pt asking for nurse. Pt asks for more pain medication, EDPA consulted and verbal order for one additional tab of Percocet given.). --19:40 Joan Ervin R.N. 19:40 02/17/2017 Percocet (Oxycodone-Acetaminophen) PO 5/325 mg Tablets 1 tab given. Allergies verified, confirmed 5 rights and sedative warning given to the patient. --19:40 Joan Ervin R.N. 19:40- pt given brett lafleur, per pt request. --19:42 Joan Ervin R.N. DISPOSITION / DISCHARGE Condition at departure: improved and stable. No learning barriers present. Discharge instructions provided and reviewed with the patient. Reviewed medication(s) side effects, precautions, dosing and course information. Prescription(s) given to the patient (Ibuprofen, Percocet). Patient verbalized understanding. Written instructions provided in Syriac. The patient was discharged home and accompanied by spouse. She left the Emergency Department ambulatory and via private vehicle. Spouse driving. ( pt dressed and ready to go, refuses discharge vitals). --19:57 Joan Ervin R.N. 19:55 02/17/17. BP: deferred. HR: deferred. RR: 15 (regular, unlabored and normal). O2 saturation: deferred. Temp: deferred. Montesinos-Maria pain scale: 10. --19:57 Joan Ervin R.N. Locked/Released at 02/18/2017 5:21 by Harshal Ulrich
--- NOTE | 2017-02-17 19:42 | ED ORDER SUMMARY ---
..... Patient: FAREED MAGANA OrderSheet [facility] VisitID: [id number] [address] [place] [address] 36y, F Registration Date/Time: 02/17/2017 ORDER SHEET Weight: 63.5 kg (stated) Allergies: Aspirin, Azithromycin, Codeine, morphine, Penicillin, Sulfa Antibiotics GENERAL ORDERS: Hand 3 or 4V Left Urgent (18:08 02/17/2017 JBoardley R.N. per protocol) (Ack 18:10 Jaime) (18:20 JBoardley R.N.) Splint (UE) (Left) (Sugar Tong) (18:39 02/17/2017 EKoroleva P.A.-C) (Ack 18:57 JBoardley R.N.) (19:07 JBoardley R.N.) MEDICATION ORDERS: Percocet PO 5/325 mg (HIGH ALERT MEDICATION, NOW) (18:38 02/17/2017 EKoroleva P.A.-C) (Ack 18:48 JBoardley R.N.) (18:50 JBoardley R.N.) Zofran ODT PO 4 mg (NOW) (18:51 02/17/2017 JBoardley R.N. per protocol) (18:51 JBoardley R.N.) Percocet PO 5/325 mg (HIGH ALERT MEDICATION, NOW) (19:37 02/17/2017 EKoroleva P.A.-C) (19:40 RCollier R.N.) IV FLUIDS: ORDER SHEET NOTES: [Electronically signed by Cristal WadsworthAKateryna-C (23:06 02/17/2017)] [Electronically signed by Mirella Jaime R.N. (05:20 02/18/2017)] [Electronically locked/signed by Mirella Jaime R.N. (05:20 02/18/2017)]
--- NOTE | 2017-02-17 19:42 | ED ORDER SUMMARY ---
..... Patient: FAREED MAGANA OrderSheet [facility] VisitID: [id number] [address] [place] [address] 36y, F Registration Date/Time: 02/17/2017 ORDER SHEET Weight: 63.5 kg (stated) Allergies: Aspirin, Azithromycin, Codeine, morphine, Penicillin, Sulfa Antibiotics GENERAL ORDERS: Hand 3 or 4V Left Urgent (18:08 02/17/2017 JBoardley R.N. per protocol) (Ack 18:10 Jaime) (18:20 JBoardley R.N.) Splint (UE) (Left) (Sugar Tong) (18:39 02/17/2017 EKoroleva P.A.-C) (Ack 18:57 JBoardley R.N.) (19:07 JBoardley R.N.) MEDICATION ORDERS: Percocet PO 5/325 mg (HIGH ALERT MEDICATION, NOW) (18:38 02/17/2017 EKoroleva P.A.-C) (Ack 18:48 JBoardley R.N.) (18:50 JBoardley R.N.) Zofran ODT PO 4 mg (NOW) (18:51 02/17/2017 JBoardley R.N. per protocol) (18:51 JBoardley R.N.) Percocet PO 5/325 mg (HIGH ALERT MEDICATION, NOW) (19:37 02/17/2017 EKoroleva P.A.-C) (19:40 RCollier R.N.) IV FLUIDS: ORDER SHEET NOTES: [Electronically signed by Cristal WadsworthAKateryna-C (23:06 02/17/2017)] [Electronically signed by Mirella Jaime R.N. (05:20 02/18/2017)] [Electronically locked/signed by Mirella Jaime R.N. (05:20 02/18/2017)]
--- NOTE | 2017-02-17 19:42 | ED NURSING NOTES ---
Clinical Report - Nurses [facility] [address] [place] [address] 02/17/2017 17:53 Patient: FAREED MAGANA TRIAGE Triage time 18:05. Acuity: LEVEL 4. Chief Complaint: INJURY TO LEFT HAND. 18:05 02/17/17. 18:06 02/17/17. Alert. No acute distress. SEPSIS SCREEN: Sepsis Screen. Negative (no infection suspected/documented). BHARATHI COMA SCORE: [place] Coma Scale: 15- eyes open spontaneously (4); best verbal response- oriented x 4 (5); best motor response- obeys commands (6). --18:11 Marquis Delgado R.N. 18:05 02/17/17. BP: 116/68. HR: 87. RR: 14. O2 saturation: 100% on room air. Temp: 98.1 F (oral). Pain level now: 06/19. --18:11 Marquis Delgado R.N. Weight: 63.5 kg stated. Height/Length: 61 inches Per Patient. BMI: 26.5. --18:06 Marquis Delgado R.N. Medications Estradiol Oral. --18:07 Marquis Delgado R.N. Medication/allergy information source: the patient and patient's family. --18:11 Marquis Delgado R.N. Allergies Aspirin. Azithromycin. Codeine. morphine. Possible Moderate(jittery) Penicillin. Sulfa Antibiotics. --18:07 Marquis Delgado R.N. History Arrived by private vehicle. Historian: patient. Accompanied by family. Primary physician (NONE). 18:06 02/17/17. This occurred just prior to arrival. Occurred at home. Mechanism of injury: fell. Treatment DENTAL LAB TECHNICIAN: Took ibuprofen. PAST MEDICAL HX: Tetanus status: up-to-date. Immunizations: up-to-date. SOCIAL HX: Current every day light tobacco smoker (cigarette)- less than 1/2 a pack per day. Occasional alcohol use. No drug use. No infectious disease exposure. ABUSE ASSESSMENT: No report of abuse. FALL RISK ASSESSMENT: Fall risk assessment completed. No fall risk identified. NUTRITIONAL RISK ASSESSMENT: The nutritional risk assessment revealed no deficiencies. FUNCTIONAL ASSESSMENT: Functional assessment: no impairments noted. LEARNING NEEDS ASSESSMENT: The learning needs assessment revealed no barriers. SKIN INTEGRITY ASSESSMENT: Skin integrity risk assessment completed. No skin integrity risk identified. --18:11 Marquis Delgado R.N. PROBLEMS: Contusion. Head Injury. Vomiting. UTI - Urinary Tract Infection. Back Injury. Back Pain. Lumbar Strain. --18:07 Marquis Delgado R.N. ADDITIONAL SURGERIES: Hysterectomy. Previous Abdominal Surgery. --18:08 Marquis Delgado R.N. Assessment 18:06 02/17/17. --18:11 Marquis Delgado R.N. Interventions 18:05 02/17/17. 18:06 02/17/17. ID and allergy band on patient. To treatment room. --18:11 Marquis Delgado R.N. PHYSICAL ASSESSMENT 18:02/17/17. Ambulatory to room. GENERAL / NEURO / PSYCH: Oriented X 4. Alert. Appears in no acute distress. EXTREMITIES: Capillary refill is less than 2 seconds in the extremities. Left hand: tenderness and swelling. SKIN: Skin is warm and dry. --18:08 Marquis Delgado R.N. NURSING PROGRESS NOTES 18:02/17/17. The plan of care for this patient has been created. Cold pack applied. Extremity elevated. Reassurance given. Two patient identifiers checked. Call light placed in reach. Side rails up x 2. Bed placed in lowest position. Brakes of bed on. --18:08 Marquis Delgado R.N. 18:30 02/17/17. ( Elevated left hand, gave pt warm blankets). --18:30 Marquis Delgado R.N. 18:50 02/17/2017 Percocet (Oxycodone-Acetaminophen) PO 5/325 mg Tablets 1 tab given. Allergies verified, confirmed 5 rights and sedative warning given to the patient. --18:50 Marquis Delgado R.N. 18:51 02/17/2017 Zofran ODT (Ondansetron) PO 4 mg given. Allergies verified and confirmed 5 rights. --18:51 Marquis Delgado R.N. 19:15 02/17/17. Care transferred and report given. --19:15 Marquis Delgado R.N. 19:19 02/17/17. ( Tech splinting arm then pt to be DC'd). --19:19 Marquis Delgado R.N. Short arm sugar tong fiberglass upper extremity splint applied to right arm by tech. Distal pulses intact, sensation intact and motor within normal limits. --19:36 Nora Wayne ( pt asking for nurse. Pt asks for more pain medication, EDPA consulted and verbal order for one additional tab of Percocet given.). --19:40 Joan Ervin R.N. 19:40 02/17/2017 Percocet (Oxycodone-Acetaminophen) PO 5/325 mg Tablets 1 tab given. Allergies verified, confirmed 5 rights and sedative warning given to the patient. --19:40 Joan Ervin R.N. 19:40- pt given brett lafleur, per pt request. --19:42 Joan Ervin R.N. DISPOSITION / DISCHARGE Condition at departure: improved and stable. No learning barriers present. Discharge instructions provided and reviewed with the patient. Reviewed medication(s) side effects, precautions, dosing and course information. Prescription(s) given to the patient (Ibuprofen, Percocet). Patient verbalized understanding. Written instructions provided in Mongolian. The patient was discharged home and accompanied by spouse. She left the Emergency Department ambulatory and via private vehicle. Spouse driving. ( pt dressed and ready to go, refuses discharge vitals). --19:57 Joan Ervin R.N. 19:55 02/17/17. BP: deferred. HR: deferred. RR: 15 (regular, unlabored and normal). O2 saturation: deferred. Temp: deferred. Montesinos-Maria pain scale: 10. --19:57 Joan Ervin R.N. Locked/Released at 02/18/2017 5:21 by Harshal Ulrich
--- NOTE | 2017-02-17 19:42 | ED CLINICAL REPORT ---
Clinical Report - Physicians/Mid Levels [facility] [address] [place] [address] 02/17/2017 17:53 Patient: FAREED MAGANA Time Seen: 1809. Arrived- By private vehicle. Historian- patient. HISTORY OF PRESENT ILLNESS Chief Complaint: Injury to the left hand. The injury happened just prior to arrival. Occurred at home. The patient sustained a direct blow. Patient is experiencing moderate pain. Patient denies injury to the head or neck. ( Patient breath arrival was standing on the kitchen counter, when she fell and lost balance, sustaining injury toher left hand from the oven. Reports pain and swelling. Incident occurred a few hours per throat. She has ice area. Pain with movement of her index and middle finger. Denies prior injury to the area. Denies any laceration or any bleeding. Denies any wrist injury. Denies falling on outstretched wrist. Denies any injury to her head. No LOC.). REVIEW OF SYSTEMS No skin laceration. All systems otherwise negative, except as recorded above. PAST HISTORY The patient's dominant hand is the right. She has not had a prior injury to the same area. Problems: Contusion. Head Injury. Vomiting. UTI - Urinary Tract Infection. . Back Injury. Back Pain. Lumbar Strain. Additional Surgeries: Hysterectomy. Previous Abdominal Surgery. Medications: Estradiol Oral. Allergies: Aspirin. Azithromycin. Codeine. morphine. Possible Moderate(jittery) Penicillin. Sulfa Antibiotics. SOCIAL HISTORY Smoker- current status unknown. Alcohol use. No drug use. ADDITIONAL NOTES The nursing notes have been reviewed. PHYSICAL EXAM Vital Signs: 02/17/2017 18:05 BP: 116/68. HR: 87. RR: 14. O2 saturation: 100%. Temp: 98.1 F. Pain level now: 8/10. Appearance: Alert. No acute distress. Head: Head atraumatic. CVS: Normal heart rate and rhythm. Heart sounds normal. Respiratory: No respiratory distress. Breath sounds normal. Abdomen: No visible injury. No abdominal tenderness. Skin: Skin warm. Skin intact. Extremities: Anatomic snuffbox, left arm: No tenderness or swelling. Dorsal left hand: moderate tenderness and swelling and small ecchymosis of the central aspect of the dorsal hand. Limited extension of the index finger. No puncture wound, foreign body or deformity. Left palm: No tenderness or swelling. Left thumb: No tenderness or swelling. Left index finger: No tenderness or swelling. Left middle finger: No tenderness or swelling. Left ring finger: No tenderness or swelling. Left little finger: No tenderness or swelling. No wrist injury. Neuro, Vascular and Tendons: Vascular status intact. Motor intact. Neuro: Oriented X 3. LABS, X-RAYS, AND EKG Rt Hand X-ray: (Addendum created at 02/17/2017 7:49:20 PM: Addendum: The study was reviewed at the request of the ordering physician. At the base of the second metacarpal, there is a cortical irregularity along the medial side of the metaphysis which may represent a nondisplaced fracture. This is not seen on other views, however reportedly corresponds to the one of the patient's site of tenderness. Impression: 1. Questionable nondisplaced second metacarpal base fracture. Immobilization and repeat imaging is recommended. Addendum by: Glenys Wu MD PROCEDURE: XR HAND 3 OR 4 VIEWS - LEFT INDICATION: TRAUMA/INJURY TECHNIQUE: Five views of the left hand. COMPARISON: None. FINDINGS: Normal mineralization. No fractures. Normal osseous alignment. No suspicious soft-tissue calcification or radiodense foreign bodies. IMPRESSION: 1. Intact left hand. Electronically Final signed by:Glenys Wu MD 02/17/2017 6:46:24 PM). PROGRESS AND PROCEDURES PROCEDURES (Sugar Tong: NS intact). Course of Care: patient here stable. Concern for a fracture. No signs of open injury. Patient very stable. No signs of secondary infectious process. Good distal sensation and range of motion. No other injuries. 02/17/2017 19:55 RR: 15. Montesinos-Maria pain scale: 2/10. Patient is stable. Symptoms better. Patient/family counseled. Disposition: Discharged. Condition: good. CLINICAL IMPRESSION Fracture of the base of the second metacarpal. Fall on same level by slipping. INSTRUCTIONS Apply ice. Wear fiberglass splint. Limit use of your left hand for two weeks. Prescription Medications: Motrin 800 mg tablets: take 1 tablet orally for 5 days, as needed for pain. Dispense fifteen (15). No refill. Percocet 5 mg/325 mg: take 1 tablet orally every 6 hours. Dispense twenty (20). No refill. Substitution is permissible. Follow-up with: [facility], , [address], , [place], [id number] Follow up. Call for the next available appointment. (Electronically signed by Cristal Wadsworth P.A.-C 02/17/2017 23:06)
--- NOTE | 2017-02-17 19:42 | ED CLINICAL REPORT ---
Clinical Report - Physicians/Mid Levels [facility] [address] [place] [address] 02/17/2017 17:53 Patient: FAREED MAGANA Time Seen: 1809. Arrived- By private vehicle. Historian- patient. HISTORY OF PRESENT ILLNESS Chief Complaint: Injury to the left hand. The injury happened just prior to arrival. Occurred at home. The patient sustained a direct blow. Patient is experiencing moderate pain. Patient denies injury to the head or neck. ( Patient breath arrival was standing on the kitchen counter, when she fell and lost balance, sustaining injury toher left hand from the oven. Reports pain and swelling. Incident occurred a few hours per throat. She has ice area. Pain with movement of her index and middle finger. Denies prior injury to the area. Denies any laceration or any bleeding. Denies any wrist injury. Denies falling on outstretched wrist. Denies any injury to her head. No LOC.). REVIEW OF SYSTEMS No skin laceration. All systems otherwise negative, except as recorded above. PAST HISTORY The patient's dominant hand is the right. She has not had a prior injury to the same area. Problems: Contusion. Head Injury. Vomiting. UTI - Urinary Tract Infection. . Back Injury. Back Pain. Lumbar Strain. Additional Surgeries: Hysterectomy. Previous Abdominal Surgery. Medications: Estradiol Oral. Allergies: Aspirin. Azithromycin. Codeine. morphine. Possible Moderate(jittery) Penicillin. Sulfa Antibiotics. SOCIAL HISTORY Smoker- current status unknown. Alcohol use. No drug use. ADDITIONAL NOTES The nursing notes have been reviewed. PHYSICAL EXAM Vital Signs: 02/17/2017 18:05 BP: 116/68. HR: 87. RR: 14. O2 saturation: 100%. Temp: 98.1 F. Pain level now: 8/10. Appearance: Alert. No acute distress. Head: Head atraumatic. CVS: Normal heart rate and rhythm. Heart sounds normal. Respiratory: No respiratory distress. Breath sounds normal. Abdomen: No visible injury. No abdominal tenderness. Skin: Skin warm. Skin intact. Extremities: Anatomic snuffbox, left arm: No tenderness or swelling. Dorsal left hand: moderate tenderness and swelling and small ecchymosis of the central aspect of the dorsal hand. Limited extension of the index finger. No puncture wound, foreign body or deformity. Left palm: No tenderness or swelling. Left thumb: No tenderness or swelling. Left index finger: No tenderness or swelling. Left middle finger: No tenderness or swelling. Left ring finger: No tenderness or swelling. Left little finger: No tenderness or swelling. No wrist injury. Neuro, Vascular and Tendons: Vascular status intact. Motor intact. Neuro: Oriented X 3. LABS, X-RAYS, AND EKG Rt Hand X-ray: (Addendum created at 02/17/2017 7:49:20 PM: Addendum: The study was reviewed at the request of the ordering physician. At the base of the second metacarpal, there is a cortical irregularity along the medial side of the metaphysis which may represent a nondisplaced fracture. This is not seen on other views, however reportedly corresponds to the one of the patient's site of tenderness. Impression: 1. Questionable nondisplaced second metacarpal base fracture. Immobilization and repeat imaging is recommended. Addendum by: Glenys Wu MD PROCEDURE: XR HAND 3 OR 4 VIEWS - LEFT INDICATION: TRAUMA/INJURY TECHNIQUE: Five views of the left hand. COMPARISON: None. FINDINGS: Normal mineralization. No fractures. Normal osseous alignment. No suspicious soft-tissue calcification or radiodense foreign bodies. IMPRESSION: 1. Intact left hand. Electronically Final signed by:Glenys Wu MD 02/17/2017 6:46:24 PM). PROGRESS AND PROCEDURES PROCEDURES (Sugar Tong: NS intact). Course of Care: patient here stable. Concern for a fracture. No signs of open injury. Patient very stable. No signs of secondary infectious process. Good distal sensation and range of motion. No other injuries. 02/17/2017 19:55 RR: 15. Montesinos-Maria pain scale: 2/10. Patient is stable. Symptoms better. Patient/family counseled. Disposition: Discharged. Condition: good. CLINICAL IMPRESSION Fracture of the base of the second metacarpal. Fall on same level by slipping. INSTRUCTIONS Apply ice. Wear fiberglass splint. Limit use of your left hand for two weeks. Prescription Medications: Motrin 800 mg tablets: take 1 tablet orally for 5 days, as needed for pain. Dispense fifteen (15). No refill. Percocet 5 mg/325 mg: take 1 tablet orally every 6 hours. Dispense twenty (20). No refill. Substitution is permissible. Follow-up with: [facility], , [address], , [place], [phone] Follow up. Call for the next available appointment. (Electronically signed by Cristal Wadsworth P.A.-C 02/17/2017 23:06)
--- NOTE | 2017-02-18 05:21 | ED MAR SUMMARY ---
..... Medication Administration Record [facility] [address] [place] [address] Patient: FAREED MAGANA Visit ID: [id number] 36y, F Weight: 63.5 kg Height/Length: 61 in BMI: 26.5 ALLERGIES: Aspirin, Azithromycin, Codeine, morphine, Penicillin, Sulfa Antibiotics Given 18:50 02/17/2017 Marquis Delgado R.N. Medication Administered: PERCOCET [PO] (OXYCODONE-ACETAMINOPHEN), Dose: 1 tab 5/325 mg Tablets PO. Medication Ordered: Percocet PO 5/325 mg (HIGH ALERT MEDICATION, NOW). Given 18:51 02/17/2017 Marquis Delgado R.N. Medication Administered: ZOFRAN ODT [PO] (ONDANSETRON), Dose: 4 mg PO. Medication Ordered: Zofran ODT PO 4 mg (NOW). Given 19:40 02/17/2017 Joan Ervin R.N. Medication Administered: PERCOCET [PO] (OXYCODONE-ACETAMINOPHEN), Dose: 1 tab 5/325 mg Tablets PO. Medication Ordered: Percocet PO 5/325 mg (HIGH ALERT MEDICATION, NOW).
--- NOTE | 2017-02-18 05:21 | ED MED RECONCILIATION SUMMARY ---
Patient: FAREED MAGANA Medication Reconciliation Report Located Within [facility] VisitID: [id number] [address] [place] [address] 36y, F Registration Date/Time: 02/17/2017 Weight: 63.5 kg Height/Length: 61 in. BMI: 26.5 ALLERGIES: Aspirin, Azithromycin, Codeine, morphine, Penicillin, Sulfa Antibiotics The patient's Home Medications are listed below: THE FOLLOWING MEDICATIONS NEED TO BE RECONCILED: Estradiol Oral The source(s) of the original Home Medication information: patient's family member patient The following Medications were given to the patient in the Emergency Department: Percocet [PO] PO 1 tab, administered: 02/17/2017 6:50:00 PM Zofran ODT [PO] PO 4 mg, administered: 02/17/2017 6:51:00 PM Percocet [PO] PO 1 tab, administered: 02/17/2017 7:40:00 PM The following Medications were prescribed to the patient: Motrin 800 mg tablets: take 1 tablet orally for 5 days, as needed for pain. Dispense fifteen (15). No refill. -- Cristal Wadsworth, P.A.-Liseth Percocet 5 mg/325 mg: take 1 tablet orally every 6 hours. Dispense twenty (20). No refill. Substitution is permissible. -- Cristal Wadsworth P.A.-C
--- NOTE | 2017-02-18 05:21 | ED MED RECONCILIATION SUMMARY ---
Patient: FAREED MAGANA Medication Reconciliation Report [facility] VisitID: [id number] [address] [place] [address] 36y, F Registration Date/Time: 02/17/2017 Weight: 63.5 kg Height/Length: 61 in. BMI: 26.5 ALLERGIES: Aspirin, Azithromycin, Codeine, morphine, Penicillin, Sulfa Antibiotics The patient's Home Medications are listed below: THE FOLLOWING MEDICATIONS NEED TO BE RECONCILED: Estradiol Oral The source(s) of the original Home Medication information: patient's family member patient The following Medications were given to the patient in the Emergency Department: Percocet [PO] PO 1 tab, administered: 02/17/2017 6:50:00 PM Zofran ODT [PO] PO 4 mg, administered: 02/17/2017 6:51:00 PM Percocet [PO] PO 1 tab, administered: 02/17/2017 7:40:00 PM The following Medications were prescribed to the patient: Motrin 800 mg tablets: take 1 tablet orally for 5 days, as needed for pain. Dispense fifteen (15). No refill. -- Cristal Wadsworth, P.A.-Liseth Percocet 5 mg/325 mg: take 1 tablet orally every 6 hours. Dispense twenty (20). No refill. Substitution is permissible. -- Cristal Wadsworth P.A.-C
--- NOTE | 2017-02-18 05:21 | ED MAR SUMMARY ---
..... Medication Administration Record [facility] [address] [place] [address] Patient: FAREED MAGANA Visit ID: [id number] 36y, F Weight: 63.5 kg Height/Length: 61 in BMI: 26.5 ALLERGIES: Aspirin, Azithromycin, Codeine, morphine, Penicillin, Sulfa Antibiotics Given 18:50 02/17/2017 Marquis Delgado R.N. Medication Administered: PERCOCET [PO] (OXYCODONE-ACETAMINOPHEN), Dose: 1 tab 5/325 mg Tablets PO. Medication Ordered: Percocet PO 5/325 mg (HIGH ALERT MEDICATION, NOW). Given 18:51 02/17/2017 Marquis Delgado R.N. Medication Administered: ZOFRAN ODT [PO] (ONDANSETRON), Dose: 4 mg PO. Medication Ordered: Zofran ODT PO 4 mg (NOW). Given 19:40 02/17/2017 Joan Ervin R.N. Medication Administered: PERCOCET [PO] (OXYCODONE-ACETAMINOPHEN), Dose: 1 tab 5/325 mg Tablets PO. Medication Ordered: Percocet PO 5/325 mg (HIGH ALERT MEDICATION, NOW).
--- NOTE | 2017-02-18 05:21 | ED DISCHARGE INSTRUCTIONS ---
Patient: FAREED MAGANA General Instructions [facility] VisitID: [id number] [address], [place] [id number] 36y, F Registration Date/Time: 02/17/2017 Fracture of the base of the second metacarpal. Fall on same level by slipping. INSTRUCTIONS Apply ice. Wear fiberglass splint. Limit use of your left hand for two weeks. Prescription Medications: Motrin 800 mg tablets: take 1 tablet orally for 5 days, as needed for pain. Dispense fifteen (15). No refill. Percocet 5 mg/325 mg: take 1 tablet orally every 6 hours. Dispense twenty (20). No refill. Substitution is permissible. Follow-up with: [facility], , [address] [place], [address] Follow up. Call for the next available appointment. ADDITIONAL INFORMATION Mechanical Fall You have had a fall today. It appears that the cause is mechanical. That means that you slipped, tripped or lost your balance. If your fall had been due to fainting or a seizure, further tests would be required. Home Care: Rest today and resume your normal activities when you are feeling back to normal. If you were injured during the fall, follow the advice from your doctor regarding care of your injury. You may use acetaminophen (Tylenol) or ibuprofen (Motrin, Advil) to control pain, unless another pain medicine was prescribed. [NOTE: If you have chronic liver or kidney disease or ever had a stomach ulcer or GI bleeding, talk with your doctor before using these medicines.] Fall Prevention: Was there anything that caused your fall that can be fixed, removed, or replaced? Make your home safe by keeping walkways clear of objects you may trip over. Use non-slip pads under rugs. Do not walk in poorly lit areas. Do not stand on chairs or wobbly ladders. Use caution when reaching overhead or looking upward. This position can cause a loss of balance. Be sure your shoes fit properly, have non-slip bottoms and are in good condition. Be cautious when going up and down curbs, and walking on uneven sidewalks. If your balance is poor, consider using a cane or walker. Stay as active as you can. Balance, flexibility, strength, and endurance all come from exercise. They all play a role in preventing falls. Follow Up with your doctor or as advised by our staff. Get Prompt Medical Attention if any of the following occur: Repeated mechanical falls, or unexplained falls Dizziness, fainting or seizure Severe headache Chest pain or shortness of breath Palpitations (very rapid or very slow or irregular heartbeat) Blood in vomit, stools (black or red color) Weakness of an arm or leg or one side of the face Difficulty with speech or vision Fracture:Hand [Closed] You have a fracture (break) of a bone in your hand. This may be a small crack or chip in the bone or, it may be a major break with the broken parts pushed out of position. A hand fracture is treated with a splint or cast. It usually takes 4-6 weeks to heal. Severe injuries may require surgery. Home Care: 1) Keep your arm elevated to reduce pain and swelling. When sitting or lying down elevate your arm above the level of your heart. You can do this by placing your arm on a pillow that rests on your chest or on a pillow at your side. This is most important during the first 48 hours after injury. 2) Apply an ice pack (ice cubes in a plastic bag, wrapped in a towel) over the injured area for 20 minutes every 1-2 hours the first day. You can place the ice pack inside the sling and directly over the splint/cast. Continue with ice packs 3-4 times a day for the next two days, then as needed for the relief of pain and swelling. 3) Keep the cast/splint completely dry at all times. Bathe with your cast/splint out of the water, protected with a large plastic bag, rubber-banded at the top end. If a fiberglass cast/splint gets wet, you can dry it with a hair-dryer. 4) You may use acetaminophen (Tylenol) or ibuprofen (Motrin, Advil) to control pain, unless another pain medicine was prescribed. [ NOTE : If you have chronic liver or kidney disease or ever had a stomach ulcer or GI bleeding, talk with your doctor before using these medicines.] Follow Up with your doctor within one week, or as advised by our staff, to be sure the bone is healing properly. If you were given a splint, it may be changed to a cast at your follow-up visit. [NOTE: A radiologist will review any X-rays that were taken. We will notify you of any new findings that may affect your care.] Get Prompt Medical Attention if any of the following occur: -- The plaster cast or splint becomes wet or soft -- The fiberglass cast or splint remains wet for more than 24 hours -- Increased tightness or pain under the cast or splint -- Fingers become swollen, cold, blue, numb or tingly Splint Care, Fiberglass The following will help you care for your splint: It will take up totwo hours for your fiber glass splint to fully harden; therefore, do notapply any pressure on it during that time or else it may break. To prevent swelling under the splint, for thefirst 48 hours: If the splint is on yourarm, keep it in a sling or raised to shoulder level when sitting or standing; rest it on your chest or on a pillow at your side when lying down. If the splint is on yourfoot, keep it propped up above the level of your waist when sitting or lying. Avoid crutch walking as much as possible during this time. Keep the splint/cast dry at all times. Bathe with your splint/cast well out of the water, protected with a large plastic bag, rubber-banded at the top end. If a fiberglass cast or splint gets wet, you can dry it with a hair-dryer. Follow-up care Follow up with your doctor or this facility as advised. When to seek medical care Get prompt medical attention if any of the following occur: Bad odor from the splint or wound-fluid stains the splint The splint cracks or remains wet over 24 hours Increasing tightness or pressure under the splint Fingers or toes become swollen, cold, blue, numb or tingly Increased pain under the splint Oxycodone Hydrochloride, Acetaminophen Oral tablet What is this medicine? ACETAMINOPHEN; OXYCODONE (a set a ASHOK zhou fen; ox i KOE done) is a pain reliever. It is used to treat mild to moderate pain. How should I use this medicine? Take this medicine by mouth with a full glass of water. Follow the directions on the prescription label. Take your medicine at regular intervals. Do not take your medicine more often than directed. Talk to your accounts receivable collector regarding the use of this medicine in children. Special care may be needed. Patients over 65 years old may have a stronger reaction and need a smaller dose. What side effects may I notice from receiving this medicine? Side effects that you should report to your doctor or health client care specialist as soon as possible: allergic reactions like skin rash, itching or hives, swelling of the face, lips, or tongue breathing difficulties, wheezing confusion light headedness or fainting spells severe stomach pain yellowing of the skin or the whites of the eyes Side effects that usually do not require medical attention (report to your doctor or health client care specialist if they continue or are bothersome): dizziness drowsiness nausea vomiting What may interact with this medicine? alcohol antihistamines barbiturates like amobarbital, butalbital, butabarbital, methohexital, pentobarbital, phenobarbital, thiopental, and secobarbital benztropine drugs for bladder problems like solifenacin, trospium, oxybutynin, tolterodine, hyoscyamine, and methscopolamine drugs for breathing problems like ipratropium and tiotropium drugs for certain stomach or intestine problems like propantheline, homatropine methylbromide, glycopyrrolate, atropine, belladonna, and dicyclomine general anesthetics like etomidate, ketamine, nitrous oxide, propofol, desflurane, enflurane, halothane, isoflurane, and sevoflurane medicines for depression, anxiety, or psychotic disturbances medicines for sleep muscle relaxants naltrexone narcotic medicines (opiates) for pain phenothiazines like perphenazine, thioridazine, chlorpromazine, mesoridazine, fluphenazine, prochlorperazine, promazine, and trifluoperazine scopolamine tramadol trihexyphenidyl What if I miss a dose? If you miss a dose, take it as soon as you can. If it is almost time for your next dose, take only that dose. Do not take double or extra doses. Where should I keep my medicine? Keep out of the reach of children. This medicine can be abused. Keep your medicine in a safe place to protect it from theft. Do not share this medicine with anyone. Selling or giving away this medicine is dangerous and against the law. Store at room temperature between 20 and 25 degrees C (68 and 77 degrees F). Keep container tightly closed. Protect from light. This medicine may cause accidental overdose and if it is taken by other adults, children, or pets. Flush any unused medicine down the toilet to reduce the chance of harm. Do not use the medicine after the expiration date. What should I tell my health care provider before I take this medicine? They need to know if you have any of these conditions: brain tumor Crohn's disease, inflammatory bowel disease, or ulcerative colitis drink more than 3 alcohol containing drinks per day drug abuse or addiction head injury heart or circulation problems kidney disease or problems going to the bathroom liver disease lung disease, asthma, or breathing problems an unusual or allergic reaction to acetaminophen, oxycodone, other opioid analgesics, other medicines, foods, dyes, or preservatives or trying to get breast-feeding What should I watch for while using this medicine? Tell your doctor or health client care specialist if your pain does not go away, if it gets worse, or if you have new or a different type of pain. You may develop tolerance to the medicine. Tolerance means that you will need a higher dose of the medication for pain relief. Tolerance is normal and is expected if you take this medicine for a long time. Do not suddenly stop taking your medicine because you may develop a severe reaction. Your body becomes used to the medicine. This does NOT mean you are addicted. Addiction is a behavior related to getting and using a drug for a non-medical reason. If you have pain, you have a medical reason to take pain medicine. Your doctor will tell you how much medicine to take. If your doctor wants you to stop the medicine, the dose will be slowly lowered over time to avoid any side effects. You may get drowsy or dizzy. Do not drive, use machinery, or do anything that needs mental alertness until you know how this medicine affects you. Do not stand or sit up quickly, especially if you are an older patient. This reduces the risk of dizzy or fainting spells. Alcohol may interfere with the effect of this medicine. Avoid alcoholic drinks. There are different types of narcotic medicines (opiates) for pain. If you take more than one type at the same time, you may have more side effects. Give your health care provider a list of all medicines you use. Your doctor will tell you how much medicine to take. Do not take more medicine than directed. Call emergency for help if you have problems breathing. The medicine will cause constipation. Try to have a bowel movement at least every 2 to 3 days. If you do not have a bowel movement for 3 days, call your doctor or health client care specialist. Do not take Tylenol (acetaminophen) or medicines that have acetaminophen with this medicine. Too much acetaminophen can be very dangerous. Many nonprescription medicines contain acetaminophen. Always read the labels carefully to avoid taking more acetaminophen. You have been given the following additional information: Fall, Mechanical Fracture, Hand (Closed) Splint Care, Fiberglass Oxycodone Hydrochloride, Acetaminophen Oral tablet Limit use of your left hand for two weeks. (Electronically signed by Cristal Wadsworth P.A.-C 02/17/2017 23:06)
== END 2017-02-17 19:55 | disposition home or self-care (01) ==
LOC: ED SRH 17:50
DX: S62.311A Displaced fracture of base of second metacarpal bone, left hand, initial encounter for closed fracture (principal); W01.0XXA Fall on same level from slipping, tripping and stumbling without subsequent striking against object, initial encounter; Y93.89 Activity, other specified; Y92.000 Kitchen of unspecified non-institutional (private) residence as the place of occurrence of the external cause; Y99.8 Other external cause status; F17.210 Nicotine dependence, cigarettes, uncomplicated; Z88.0 Allergy status to penicillin; Z88.1 Allergy status to other antibiotic agents; Z88.6 Allergy status to analgesic agent; Z88.5 Allergy status to narcotic agent

== ENCOUNTER 2017-02-20 10:28 | Emergency (ER) | payer OTHER ==
--- NOTE | 2017-02-20 12:51 | ED ORDER SUMMARY ---
..... Patient: FAREED MAGANA OrderSheet [facility] VisitID: [id number] [address] [place] [address] 36y, F Registration Date/Time: 02/20/2017 ORDER SHEET Weight: 74.8 kg (stated) Allergies: Erythromycin, Penicillins, Sulfa Antibiotics, Codeine GENERAL ORDERS: MEDICATION ORDERS: Demerol IM 50 mg (HIGH ALERT MEDICATION, NOW) (11:31 02/20/2017 [place]) (Ack 11:42 Ana R.NKateryna) (11:51 Ana Brizuela.Linda.) IV FLUIDS: ORDER SHEET NOTES: [Electronically signed by Reggie Dominguez R.N. (15:02/20/2017)] [Electronically signed by Garry Shaikh Dr. (21:11 02/21/2017)] [Electronically locked/signed by Reggie Dominguez R.N. (15:02/20/2017)]
--- NOTE | 2017-02-20 12:51 | ED CLINICAL REPORT ---
Clinical Report - Physicians/Mid Levels [facility] [address] [place] [address] 02/20/2017 10:30 Patient: FAREED MAGANA Time Seen: 10:45; initial patient contact. Arrived- By private vehicle. Historian- patient. HISTORY OF PRESENT ILLNESS Chief Complaint: PRESCRIPTION REFILL REQUEST. At its maximum, severity described as moderate. When seen in the E.D., severity described as moderate. Modifying factors- worsened by movement. Not relieved by anything. This started about 3 days ago and is still present. It was abrupt in onset and has been constant. (Pt suffered a Fx'd metacarpal 3 days ago, current pain Rx was not working and she is out.). Similar symptoms previously: None. Recent medical care: The patient was seen recently at this facility in the emergency department. REVIEW OF SYSTEMS The patient has had joint pain. No numbness or weakness. All systems otherwise negative, except as recorded above. PAST HISTORY Endometriosis. Metacarpal Fx. SOCIAL HISTORY Current every day smoker. Occasional alcohol use. No drug use. ADDITIONAL NOTES The nursing notes have been reviewed. PHYSICAL EXAM Vital Signs: 02/20/2017 10:37 BP: 127/80. HR: 74. RR: 17. O2 saturation: 99%. Temp: 98.2 F. Pain level now: 9/10. Have been reviewed as normal. Appearance: Alert. No acute distress. Skin: Skin warm and dry. Normal skin color. Extremities: (Splint in place. NV intact distally.). Neuro: Oriented X 3. No motor deficit. No sensory deficit. PROGRESS AND PROCEDURES Course of Care: Demerol 50 mg IM given. Physical exam findings are improved. Symptoms much better. Disposition: Discharged home in good and improved condition. CLINICAL IMPRESSION Closed nondisplaced fracture of the base of the second metacarpal of the left hand. Medication refill. INSTRUCTIONS No work with left hand until released. Your Current Medications: STOP TAKING THE FOLLOWING MEDICATIONS: Oxycodone-Acetaminophen Oral. CONTINUE TAKING THE FOLLOWING MEDICATIONS: Estradiol Oral. Ibuprofen Oral. Prescription Medications: Demerol 50 mg: take 1 tablet orally every 6 hours as needed for pain. Dispense twenty (20). No refills. Substitution is permissible. Follow-up: Follow up with your doctor as scheduled. Screening today revealed the patient's blood pressure to be in the pre-hypertensive range. The patient should follow up with a primary care provider for blood pressure management. (Electronically signed by Garry Shaikh Dr. 02/21/2017 21:11)
--- NOTE | 2017-02-20 12:51 | ED CLINICAL REPORT ---
Clinical Report - Physicians/Mid Levels [facility] [address] [place] [address] 02/20/2017 10:30 Patient: FAREED MAGANA Time Seen: 10:45; initial patient contact. Arrived- By private vehicle. Historian- patient. HISTORY OF PRESENT ILLNESS Chief Complaint: PRESCRIPTION REFILL REQUEST. At its maximum, severity described as moderate. When seen in the E.D., severity described as moderate. Modifying factors- worsened by movement. Not relieved by anything. This started about 3 days ago and is still present. It was abrupt in onset and has been constant. (Pt suffered a Fx'd metacarpal 3 days ago, current pain Rx was not working and she is out.). Similar symptoms previously: None. Recent medical care: The patient was seen recently at this facility in the emergency department. REVIEW OF SYSTEMS The patient has had joint pain. No numbness or weakness. All systems otherwise negative, except as recorded above. PAST HISTORY Endometriosis. Metacarpal Fx. SOCIAL HISTORY Current every day smoker. Occasional alcohol use. No drug use. ADDITIONAL NOTES The nursing notes have been reviewed. PHYSICAL EXAM Vital Signs: 02/20/2017 10:37 BP: 127/80. HR: 74. RR: 17. O2 saturation: 99%. Temp: 98.2 F. Pain level now: 9/10. Have been reviewed as normal. Appearance: Alert. No acute distress. Skin: Skin warm and dry. Normal skin color. Extremities: (Splint in place. NV intact distally.). Neuro: Oriented X 3. No motor deficit. No sensory deficit. PROGRESS AND PROCEDURES Course of Care: Demerol 50 mg IM given. Physical exam findings are improved. Symptoms much better. Disposition: Discharged home in good and improved condition. CLINICAL IMPRESSION Closed nondisplaced fracture of the base of the second metacarpal of the left hand. Medication refill. INSTRUCTIONS No work with left hand until released. Your Current Medications: STOP TAKING THE FOLLOWING MEDICATIONS: Oxycodone-Acetaminophen Oral. CONTINUE TAKING THE FOLLOWING MEDICATIONS: Estradiol Oral. Ibuprofen Oral. Prescription Medications: Demerol 50 mg: take 1 tablet orally every 6 hours as needed for pain. Dispense twenty (20). No refills. Substitution is permissible. Follow-up: Follow up with your doctor as scheduled. Screening today revealed the patient's blood pressure to be in the pre-hypertensive range. The patient should follow up with a primary care provider for blood pressure management. (Electronically signed by Garry Shaikh Dr. 02/21/2017 21:11)
--- NOTE | 2017-02-20 12:51 | ED NURSING NOTES ---
Clinical Report - Nurses [facility] [address] [place] [address] 02/20/2017 10:30 Patient: FAREED MAGANA TRIAGE Triage time 10:37 Feb 20 2017. Chief Complaint: LEFT UPPER EXTREMITY PAIN. Location of symptoms- (pt seen here friday for fx to right hand/wrist- pt is running low on pain meds, unable to get in to ortho for 10 days, also requests meds for nausea). Alert. No acute distress. SEPSIS SCREEN: Sepsis Screen: negative. Negative (no infection suspected/documented). DEEDEE COMA SCORE: Deedee Coma Scale: 15- eyes open spontaneously (4); best verbal response- oriented x 4 (5); best motor response- obeys commands (6). --10:46 Reggie Dominguez R.N. 10:37 02/20/17. BP: 127/80. HR: 74. RR: 17. O2 saturation: 99%. Temp: 98.2 F. Pain level now: 07/20. --10:46 Reggie Dominguez R.N. Weight: 74.8 kg stated. Height/Length: 62 inches Per Patient. BMI: 30.2. --10:43 Reggie Dominguez R.N. Medications Oxycodone-Acetaminophen Oral. --10:40 Reggie Dominguez R.N. Estradiol Oral. --10:40 Reggie Dominguez R.N. Ibuprofen Oral. --10:40 Reggie Dominguez R.N. Allergies Erythromycin. Penicillins. Sulfa Antibiotics. --10:40 Reggie Dominguez R.N. Codeine. --10:40 Reggie Dominguez R.N. History Arrived by private vehicle. Historian: patient. Injury occurred. Location of injuries: left wrist and left hand. Provoking / relieving factors: worsened by movement. ( pt fell from step stool landing on left hand). 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 PAST MEDICAL HX: Tetanus status: unknown. Immunizations: status is unknown. The patient has had a hysterectomy. Denies current . SURGERY HX: Had hysterectomy. Tonsillectomy. SOCIAL HX: Heavy tobacco smoker- less than 1 pack per day. Occasional alcohol use; consumes liquor. No drug use. No infectious disease exposure. ABUSE ASSESSMENT: No report of abuse. SELF HARM ASSESSMENT: A self harm assessment was performed. The patient answered "no" to the question "Have you recently felt down, depressed, or hopeless?", "Have you noticed less interest or pleasure in doing things?", "Do you have thoughts of harming or killing yourself?", "Are you here because you tried to hurt yourself?", "Have you ever tried to hurt yourself before today?", "Have you recently had thoughts about harming or killing others?" and "Do you have any dangerous items in your possession?". FALL RISK ASSESSMENT: Fall risk assessment completed. No fall risk identified. NUTRITIONAL RISK ASSESSMENT: The nutritional risk assessment revealed no deficiencies. FUNCTIONAL ASSESSMENT: Functional assessment: no impairments noted. LEARNING NEEDS ASSESSMENT: The learning needs assessment revealed no barriers. SKIN INTEGRITY ASSESSMENT: Skin integrity risk assessment completed. No skin integrity risk identified. --10:46 Reggie Dominguez R.N. PROBLEMS: Endometriosis. --10:41 PageReggie Jimenez R.N. Interventions ID and allergy band on patient. --10:46 Reggie Dominguez R.N. PHYSICAL ASSESSMENT EXTREMITIES: Upper extremity edema. fingers swollen, arm in splint, pt enc to cont to wiggle fingers, keep arm elevated and use ice as directed on dc paperwork. Neuro-vascular status intact to the extremity. Left wrist: (pain from fx). SKIN: Skin is warm and dry. --10:47 Reggie Dominguez R.N. NURSING PROGRESS NOTES Neuro-vascular extremity check. Patient gowned. Reassurance given. Two patient identifiers checked. Call light placed in reach. Side rails up x 1. Bed placed in lowest position. Brakes of bed on. Patient ready for evaluation- chart flagged. --10:47 Reggie Dominguez R.N. Call light placed in reach. Patient waiting for evaluation. ( pt called out for nurse, pt "I need something for pain, I feel awful" pt provided an ice pack, pt reports taking last dose of pain meds at 0730 this morning, waiting MD price). --11:12 Reggie Dominguez R.N. 11:46 02/20/2017 Demerol (Meperidine HCl) IM 50 mg given. Given in the right gluteus jana. Allergies verified, confirmed 5 rights and sedative warning given to the patient. --11:51 Reggie Dominguez R.N. ( pt given IM pain med injection, pt placed on O2 sat monitor to observe pt while in dept.). --11:52 Reggie Dominguez R.N. ( pt reports pain has decreased from a 9/10 to a 7/10, "I just want to go home now and sleep"). --12:10 Reggie Dominguez R.N. 12:10 02/20/17. O2 saturation: 98% on room air. --12:11 Reggie Dominguez R.N. DISPOSITION / DISCHARGE 13:07 02/20/17. Departure time: 1306. Condition at departure: improved and stable. No learning barriers present. Reviewed medication(s) side effects, precautions, dosing and course information. Prescription(s) given to the patient. Activity restrictions (minimal use of injured extremity) reviewed. Work note given. Patient verbalized understanding. Written instructions provided in [place]. The patient was discharged by the physician. She was discharged home. She left the Emergency Department ambulatory and via private vehicle. Patient driving. --13:07 Enrique Lundberg R.N. 13:06 02/20/17. BP: 132/85. HR: 73. RR: 16. O2 saturation: 100% on room air. Temp: 98.3 F (oral). Pain level now 8/10. --13:07 Enrique Lundberg R.N. Locked/Released at 02/20/2017 15:01 by Reggie Dominguez R.N.
--- NOTE | 2017-02-20 12:51 | ED ORDER SUMMARY ---
..... Patient: FAREED MAGANA OrderSheet [facility] VisitID: [id number] [address] [place] [address] 36y, F Registration Date/Time: 02/20/2017 ORDER SHEET Weight: 74.8 kg (stated) Allergies: Erythromycin, Penicillins, Sulfa Antibiotics, Codeine GENERAL ORDERS: MEDICATION ORDERS: Demerol IM 50 mg (HIGH ALERT MEDICATION, NOW) (11:31 02/20/2017 [place]) (Ack 11:42 Ana R.NKateryna) (11:51 Ana Brizuela.Linda.) IV FLUIDS: ORDER SHEET NOTES: [Electronically signed by Reggie Dominguez R.N. (15:02/20/2017)] [Electronically signed by Garry Shaikh Dr. (21:11 02/21/2017)] [Electronically locked/signed by Reggie Dominguez R.N. (15:02/20/2017)]
--- NOTE | 2017-02-21 21:12 | ED MAR SUMMARY ---
..... Medication Administration Record [facility] [address] [place] [address] Patient: FAREED MAGANA Visit ID: [id number] 36y, F Weight: 74.8 kg Height/Length: 62 in BMI: 30.2 ALLERGIES: Codeine, Sulfa Antibiotics, Penicillins, Erythromycin Given 11:46 02/20/2017 Reggie Dominguez RJohanny Medication Administered: DEMEROL [IM] (MEPERIDINE HCL), Dose: 50 mg IM. Medication Ordered: Demerol IM 50 mg (HIGH ALERT MEDICATION, NOW).
--- NOTE | 2017-02-21 21:12 | ED MED RECONCILIATION SUMMARY ---
Patient: FAREED MAGANA Medication Reconciliation Report [facility] VisitID: [id number] [address] [place] [address] 36y, F Registration Date/Time: 02/20/2017 Weight: 74.8 kg Height/Length: 62 in. BMI: 30.2 ALLERGIES: Codeine, Erythromycin, Penicillins, Sulfa Antibiotics The patient's Home Medications are listed below: STOP TAKING THE FOLLOWING MEDICATIONS: Oxycodone-Acetaminophen Oral CONTINUE TAKING THE FOLLOWING MEDICATIONS: Estradiol Oral Ibuprofen Oral The source(s) of the original Home Medication information: Not obtained. The following Medications were given to the patient in the Emergency Department: Demerol [IM] IM 50 mg, administered: 02/20/2017 11:46:00 AM The following Medications were prescribed to the patient: Demerol 50 mg: take 1 tablet orally every 6 hours as needed for pain. Dispense twenty (20). No refills. Substitution is permissible. -- Garry Shaikh Dr.
--- NOTE | 2017-02-21 21:12 | ED MED RECONCILIATION SUMMARY ---
Patient: FAREED MAGANA Medication Reconciliation Report [facility] VisitID: [id number] [address] [place] [address] 36y, F Registration Date/Time: 02/20/2017 Weight: 74.8 kg Height/Length: 62 in. BMI: 30.2 ALLERGIES: Codeine, Erythromycin, Penicillins, Sulfa Antibiotics The patient's Home Medications are listed below: STOP TAKING THE FOLLOWING MEDICATIONS: Oxycodone-Acetaminophen Oral CONTINUE TAKING THE FOLLOWING MEDICATIONS: Estradiol Oral Ibuprofen Oral The source(s) of the original Home Medication information: Not obtained. The following Medications were given to the patient in the Emergency Department: Demerol [IM] IM 50 mg, administered: 02/20/2017 11:46:00 AM The following Medications were prescribed to the patient: Demerol 50 mg: take 1 tablet orally every 6 hours as needed for pain. Dispense twenty (20). No refills. Substitution is permissible. -- Garry Shaikh Dr.
--- NOTE | 2017-02-21 21:12 | ED DISCHARGE INSTRUCTIONS ---
Patient: FAREED MAGANA General Instructions [facility] VisitID: [id number] [address] [place] [address] 36y, F Registration Date/Time: 02/20/2017 Closed nondisplaced fracture of the base of the second metacarpal of the left hand. Medication refill. INSTRUCTIONS No work with left hand until released. Your Current Medications: STOP TAKING THE FOLLOWING MEDICATIONS: Oxycodone-Acetaminophen Oral. CONTINUE TAKING THE FOLLOWING MEDICATIONS: Estradiol Oral. Ibuprofen Oral. Prescription Medications: Demerol 50 mg: take 1 tablet orally every 6 hours as needed for pain. Dispense twenty (20). No refills. Substitution is permissible. Follow-up: Follow up with your doctor as scheduled. Screening today revealed the patient's blood pressure to be in the pre-hypertensive range. The patient should follow up with a primary care provider for blood pressure management. ADDITIONAL INFORMATION Fracture:Hand [Closed] You have a fracture (break) of a bone in your hand. This may be a small crack or chip in the bone or, it may be a major break with the broken parts pushed out of position. A hand fracture is treated with a splint or cast. It usually takes 4-6 weeks to heal. Severe injuries may require surgery. Home Care: 1) Keep your arm elevated to reduce pain and swelling. When sitting or lying down elevate your arm above the level of your heart. You can do this by placing your arm on a pillow that rests on your chest or on a pillow at your side. This is most important during the first 48 hours after injury. 2) Apply an ice pack (ice cubes in a plastic bag, wrapped in a towel) over the injured area for 20 minutes every 1-2 hours the first day. You can place the ice pack inside the sling and directly over the splint/cast. Continue with ice packs 3-4 times a day for the next two days, then as needed for the relief of pain and swelling. 3) Keep the cast/splint completely dry at all times. Bathe with your cast/splint out of the water, protected with a large plastic bag, rubber-banded at the top end. If a fiberglass cast/splint gets wet, you can dry it with a hair-dryer. 4) You may use acetaminophen (Tylenol) or ibuprofen (Motrin, Advil) to control pain, unless another pain medicine was prescribed. [ NOTE : If you have chronic liver or kidney disease or ever had a stomach ulcer or GI bleeding, talk with your doctor before using these medicines.] Follow Up with your doctor within one week, or as advised by our staff, to be sure the bone is healing properly. If you were given a splint, it may be changed to a cast at your follow-up visit. [NOTE: A radiologist will review any X-rays that were taken. We will notify you of any new findings that may affect your care.] Get Prompt Medical Attention if any of the following occur: -- The plaster cast or splint becomes wet or soft -- The fiberglass cast or splint remains wet for more than 24 hours -- Increased tightness or pain under the cast or splint -- Fingers become swollen, cold, blue, numb or tingly Drug Abuse: Prescribed Narcotics& Sedatives Prolonged or overuse of drugs prescribed for pain or sedation may lead to addictionor dependence. Physical dependence leads to drug withdrawal symptoms if you stop taking the drug. With psychological dependence you feel a strong craving for the drug. You may be unable to stop using the drug even though you want to stop. These problems can occur even when the medication is taken at the prescribed dose. Drug addiction places you, your family, and your job at risk. Arrest, conviction and shelter sentencing are possible. There is increased danger of accidental injuries to yourself or others while you are under the influence of the drug. from an unintentional overdose of the drug is one of the greatest risks you face. Get Care Admit you have a drug problem to yourself and your family and close friends. Tell your prescribing doctors about this problem so they can help you by adjusting the type and amount of medications that are prescribed in the future. It is best to receive all prescriptions for addictive medications from a single physician who can monitor what is being prescribed. Ask your doctor for a referral for professional help. This could be individual psychotherapy or counseling or a drug treatment program (outpatient or residential). Join a self-help group for drug abuse. Avoid friends who abuse drugs themselves or tempt you to continue abusing drugs. Do not combine pain medicines and sedatives together or with alcohol. Doing so can cause oversedation, coma, and stop your breathing. Follow Up with your doctor or as advised by our staff. Contact one of the resources below for help. National [place] on Alcoholism and Drug Dependencewww.ncadd.org Narcotics Anonymouswww.na.org National Alcohol and Substance Abuse Information Center (for referral to treatment programs) 639.779.8297 www.addictioncareoptions.com Get Prompt Medical Attention if any of the following occur: Excess drowsiness Slow breathing (under 8 breaths per minute) Agitation, anxiety, unable to sleep Unintended weight loss Seizure Chest pain or shortness of breath Fever of 100.4F (38C) or higher, or as directed by your healthcare provider Cough with colored sputum You have been given the following additional information: Fracture, Hand (Closed) Drug Abuse: Prescribed Narcotics And Sedatives No work with left hand until released. (Electronically signed by Garry Shaikh Dr. 02/21/2017 21:11)
--- NOTE | 2017-02-21 21:12 | ED MAR SUMMARY ---
..... Medication Administration Record [facility] [address] [place] [address] Patient: FAREED MAGANA Visit ID: [id number] 36y, F Weight: 74.8 kg Height/Length: 62 in BMI: 30.2 ALLERGIES: Codeine, Sulfa Antibiotics, Penicillins, Erythromycin Given 11:46 02/20/2017 Reggie Dominguez RJohanny Medication Administered: DEMEROL [IM] (MEPERIDINE HCL), Dose: 50 mg IM. Medication Ordered: Demerol IM 50 mg (HIGH ALERT MEDICATION, NOW).
== END 2017-02-20 13:06 | disposition home or self-care (01) ==
LOC: ED SRH 10:28
DX: S62.341D Nondisplaced fracture of base of second metacarpal bone, left hand, subsequent encounter for fracture with routine healing (principal); X58.XXXD Exposure to other specified factors, subsequent encounter; F17.200 Nicotine dependence, unspecified, uncomplicated; Z76.0 Encounter for issue of repeat prescription